=== PATIENT | female | born 1985 | race Caucasian/White ===

== ENCOUNTER 2018-02-25 07:57 | Outpatient (CLI) | payer OTHER, SELFPAY ==
--- NOTE | 2018-02-25 10:39 | HPE_ITS ---
Assessment and Plan (1) Intermittent palpitations: Current visit: Yes Status: Chronic History of intermittent rapid heartbeat that it that has been present for about 1-1/2 years. Had one episode episode of tachycardia associated with some chest pain prompting a visit to [facility] ER. Following his episode she was sent to Dr. Luciano in [place] where workup inclusive of Holter monitor and the exact event recorder was done. She was begun on metoprolol and since being begun on the metoprolol she has not had any episodes of tachycardia. She was never given a diagnosis of A. fib or V. tach. Actually she was never given any specific diagnosis that she can recall she has never been prescribed any nitroglycerin. Problem details: (2) History of snoring: Current visit: Yes Status: Chronic History of snoring but no history of waking up with a startle or so. Pauses apneic spells. (3) Pain in thumb joint with movement: Current visit: Yes Status: Acute Scheduled for surgery with Dr. Pelayo to release the first dorsal extensor compartment for de Quervain's tenosynovitis. Today she is using ibuprofen 800 mg 1-2 times a day. 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 She notes pain with any activities like opening a jar or any twisting presently she is using ibuprofen [address] mg [address] Pelayo has recommended a first dorsal extensor compartment relief since the pain is currently really disrupting her activities of daily living Review of Systems ENT Comments: Patient denies any headaches snezs cough runny nose sore throat Respiratory Denies cough, Denies pain on inspiration and Reports wheezing Allergic/Immunologic Reports wheezing PFSH Medical History Intermittent palpitations (Chronic) PCOS (polycystic ovarian syndrome) (Acute) Severe motion sickness (Acute) Depression (Chronic) GERD (gastroesophageal reflux disease) (Chronic) Hypertension (Chronic) Intermittent palpitations (Resolved) Intermittent palpitations (Inactive) Social History Smoking/Tobacco Use Status: Never alcohol intake: current alcohol intake frequency: other substance use type: does not use Surgical History History of oral surgery (Acute) History of hernia repair (Chronic) Meds Home Medications Medication Instructions Recorded Confirmed Type cetirizine [Zyrtec] 10 mg PO HS 02/25/18 02/25/18 History ibuprofen 800 mg PO TID PRN 02/25/18 02/25/18 History metoprolol succinate 50 mg PO HS 02/25/18 02/25/18 History sertraline 50 mg PO HS 02/25/18 02/25/18 History Allergies Allergy/AdvReac Type Severity Reaction Status Date / Time Influenza Virus Vaccines AdvReac Severe difficulty Verified 02/25/18 09:34 breathing, flush, itchy metformin AdvReac Severe hair loss, Verified 02/25/18 09:15 muscle spasms miconazole [From Monistat 7] AdvReac Severe Itching Verified 02/25/18 09:14 omeprazole AdvReac Severe Heart Verified 02/25/18 09:14 palpitations, tachacardia Exam Resp Effort & Inspection: normal respiratory effort, no audible wheezes and no cough Auscultation: clear to auscultation bilaterally Cardio Jugular venous pressure: no JVD Rate: regular rate Rhythm: regular rhythm Heart Sounds: normal, physiologic split S2 Bruits: no abdominal aortic bruits and carotid bruit Extrem Other: Exam of the right upper extremity shows tenderness along the course of the first dorsal extensor compartment with a markedly positive Yu's. This contrasts to a negative Yu's test on the left upper extremity.
== END 2018-02-25 08:17 ==
PROVIDERS: PCP Nurse Practitioner Family; Visit Provider Orthopaedic Surgery
DX: M65.4 Radial styloid tenosynovitis [de Quervain] (principal); Z01.818 Encounter for other preprocedural examination

== ENCOUNTER 2018-03-03 11:53 | Outpatient (CLI) | payer OTHER, SELFPAY ==
[2018-03-03 14:09] LABS: HCG Qual (Serum) Negative
[2018-03-04 11:11] LABS: Syphilis Serology (RPR) Negative (Negative)
[2018-03-04 11:27] LABS: HIV-1/2 Ag & Ab Screen Negative (NEGAT)
[2018-03-04 11:33] LABS: Hepatitis C Ab w Rflx HCV PCR Negative (NEGAT)
[2018-03-04 14:39] LABS: Chlamydia Result Negative; GC Result Negative; Specimen Description URINE
== END 2018-03-03 12:13 ==
PROVIDERS: PCP Nurse Practitioner Family; Visit Provider Nurse Practitioner Family
DX: Z20.2 Contact with and (suspected) exposure to infections with a predominantly sexual mode of transmission (principal); Z11.4 Encounter for screening for human immunodeficiency virus [HIV]; Z11.3 Encounter for screening for infections with a predominantly sexual mode of transmission; Z11.59 Encounter for screening for other viral diseases
CPT/HCPCS: 36415; 86803; 87389; 87491; 87591; 84702; 84703; 86592

== ENCOUNTER 2018-03-05 06:10 | Day surgery (SDC) | payer OTHER, SELFPAY ==
[2018-02-25 09:17] VITALS: BP 130/86; PULSE 78; RESP 17; TEMP 36.7; O2SAT 97
[2018-03-05 06:10] VITALS: BP 132/96; PULSE 80; RESP 18; TEMP 36.6; O2SAT 96
[2018-03-05] MEDS: Lactated Ringers 1,000 ML 80 ML IV (06:50)
[2018-03-05] MEDS: Bupivacaine 0.5% Pres-Free 30 ML VIAL (07:44)
--- NOTE | 2018-03-05 08:30 | W.PM.DSUDISC ---
Discharge Plan Disposition Patient Disposition: HOME Condition: Improving Discharge Details Reason For Visit: DEQUERVAIN'S RELEASE Attending Provider: Wolf Pelayo Primary Care Provider: Luz Santos Home Meds and New Rx's Prescriptions: No Action metoprolol succinate 50 mg Tablet Extended Release 24 Hr 50 mg PO HS RF: 0 ibuprofen 200 mg Tablet 800 mg PO TID PRN (Reason: migraines) RF: 0 sertraline 50 mg Tablet 50 mg PO HS RF: 0 cetirizine [Zyrtec] 10 mg Capsule 10 mg PO HS RF: 0 acetaminophen 500 mg Tablet 1,000 mg PO PRN PRNRF: 0 oxycodone-acetaminophen [Percocet] 5-325 mg Tablet 1 - 2 tab PO Q6H RF: 0 Discharge Instructions Additional Instructions: Keep your right hand elevated above heart level as much as possible for the next 48 hours. You may exercise your thumb as comfort allows. . You may loosen the wrist splint and/or the underlying alfred bandage if they feel too tight. You may use ice to the incision area of the bandage 20-30 minutes every hour to help with pain and swelling. For showering tomorrow, cover your wrist with a plastic bag and a rubber band about the upper forearm to keep the bandages dry. On 03/07/18, you may remove all of your bandages and get your wound wet in the shower with soap and water. Gently pat the stitches dry and cover them with bandaids or gauze. Resume activities as tolerated, going without the wrist splint as soon as you are comfortable. Follow-up with in 10 days for stitch removal. Take your regular medications as before. Take tylenol, advil or aleve for milder pain. Tylenol may be taken at the same time as aleve or at the same time as advil as they are metabolized differently and are not cross toxic. Take percocet 5/325mg 1-2 every 4-6 hours for more serious pain. [facility] regulations limit the amount of percocet that can be prescribed to 5 tablets. Stand Alone Forms: DSU Post op Instructions, Adrien Esparza (DSU) Print Language: Mongolian Equipment/Supplies: Brace Activity:: Elevate Remove Dressings/Wound Care:: 48 hours Shower/Bathe:: 48 hours Diet:: regular Discharge Orders Discharge Orders: Discharge Order (Routine); Ordered 03/05/18 Ordered By: Wolf Pelayo Discharge Data Discharge Date/Time-TO BE ENTERED AT DEPARTURE: 03/05/18 09:29 DS: Diagnosis Discharge Diagnosis (1) Tenosynovitis, de Quervain: Status: Acute Asessment and Plan: Surgery 03/05/18 should resolve problem
[2018-03-05 08:35] VITALS: BP 124/79; PULSE 68; RESP 16; TEMP 36.9; O2SAT 99
[2018-03-05] MEDS: Ketorolac 30 MG/ML VIAL IVP (08:41)
[2018-03-05] MEDS: ACETAMINOPHEN 1,000 MG/100 ML BTL 400 MG IVPB (08:42)
--- NOTE | 2018-03-05 08:45 | PDOC.DSDIS_ITS ---
Discharge Plan Disposition Patient Disposition: HOME Condition: Improving Discharge Details Reason For Visit: DEQUERVAIN'S RELEASE Attending Provider: Wolf Pelayo Primary Care Provider: Luz Santos Home Meds and New Rx's Prescriptions: No Action metoprolol succinate 50 mg Tablet Extended Release 24 Hr 50 mg PO HS RF: 0 ibuprofen 200 mg Tablet 800 mg PO TID PRN (Reason: migraines) RF: 0 sertraline 50 mg Tablet 50 mg PO HS RF: 0 cetirizine [Zyrtec] 10 mg Capsule 10 mg PO HS RF: 0 acetaminophen 500 mg Tablet 1,000 mg PO PRN PRNRF: 0 Discharge Instructions Additional Instructions: Keep your right hand elevated above heart level as much as possible for the next 48 hours. You may exercise your thumb as comfort allows. . You may loosen the wrist splint and/or the underlying alfred bandage if they feel too tight. You may use ice to the incision area of the bandage 20-30 minutes every hour to help with pain and swelling. For showering tomorrow, cover your wrist with a plastic bag and a rubber band about the upper forearm to keep the bandages dry. On 03/07/18, you may remove all of your bandages and get your wound wet in the shower with soap and water. Gently pat the stitches dry and cover them with bandaids or gauze. Resume activities as tolerated, going without the wrist splint as soon as you are comfortable. Follow-up with in 10 days for stitch removal. Take your regular medications as before. Take tylenol, advil or aleve for milder pain. Tylenol may be taken at the same time as aleve or at the same time as advil as they are metabolized differently and are not cross toxic. Take percocet 5/325mg 1-2 every 4-6 hours for more serious pain. [facility] [place] limit the amount of percocet that can be prescribed to 5 tablets. Equipment/Supplies: Brace Activity:: Elevate Remove Dressings/Wound Care:: 48 hours Shower/Bathe:: 48 hours Activity:: Activity as Tolerated Diet:: regular Discharge Orders Discharge Orders: Discharge Order (Routine); Ordered 03/05/18 Ordered By: Wolf Pelayo
--- NOTE | 2018-03-05 09:59 | ROE_ITS ---
REPORT OF OPERATIVE PROCEDURE DATE OF PROCEDURE March 05, 2018 PREOPERATIVE DIAGNOSIS De Quervain's tenosynovitis right wrist. POSTOPERATIVE DIAGNOSIS De Quervain's tenosynovitis right wrist. PROCEDURE Release first dorsal extensor compartment. SURGEON Wolf Pelayo M.D. HUMAN SERVICES INSTRUCTOR Nurse ANESTHESIA MAC via Propofol to tolerate use of brachial tourniquet. 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 She has been bothered by jacob gan snapping in her right thumb. Clinical exam shows a positive Yu test and tenderness raul ng the first dorsal extensor compartment. I recommended release of the first dorsal extensor compartm ent because the patient had been symptomatic for a long period of time and was significantly hampered by her wrist pain. The risks and benefits were discussed. I also explained that I would recommend M AC to tolerate a brachial tourniquet so as to prevent injury to the superficial radial nerve. She und erstood and wished to proceed. PROCEDURE The patient was greeted in the Day Surgery holding area. I reviewed the planned procedure with the jacob de paz and her mom. I signed her right upper extremity. She was taken to the Operating Suite, where a time-out was instituted verifying the procedure and the patient's allergies. She underwent induction of MAC with Propofol through an IV in her left arm. A pneumatic tourniquet was applied to the right proximal brachium. The right upper extremity was prepped with ChloraPrep. Marcaine 0.5% plain was the n used to create an anesthetic wheal over the proposed incision site. After waiting a few minutes, I then made the incision with the tourniquet inflated to 320 mmHg. The incision was carried down throug h the subcutaneous tissues using Loupe magnification. The first dorsal extensor compartment was easil y identified. The superficial radial nerve was identified and retracted dorsally. The incision was th en made in the first dorsal extensor compartment revealing synovial fluid and swelling. There was als o an extra slip of tendon of the extensor pollicis brevis. A complete release was done making sure th at there were no undiscovered compartments within the first dorsal extensor compartment. After comple tely releasing the first dorsal extensor compartment, I noted that there was no evidence to suggest r heumatoid arthritis based on the appearance to tenosynovium. At this point, the tourniquet was defla andrea. Hemostasis was under control. The subcutaneous tissues were closed with two sutures of #4-0 Vicr yl in an inverted fashion. The skin was closed with two sutures of #5-0 Ethilon in a horizontal mattr ess fashion. The wounds were dressed with Xeroform gauze, 4x4s, a 3-inch conforming gauze bandage and a 3-inch David wrap, and a commercial wrist and thumb immobilizer. The patient was taken to the [facility] Recovery Room in satisfactory condition and tolerated the procedure well.
== END 2018-03-05 09:29 | disposition home or self-care (01) ==
PROVIDERS: PCP Nurse Practitioner Family; Visit Provider Orthopaedic Surgery
PROC: (CPT 25000; principal; 2018-03-05 07:30)
DX: M65.4 Radial styloid tenosynovitis [de Quervain] (principal); K21.9 Gastro-esophageal reflux disease without esophagitis; I10 Essential (primary) hypertension
CPT/HCPCS: 25000; J0131; J1885; L3807

== ENCOUNTER 2018-05-09 10:13 | Outpatient (CLI) | payer OTHER, SELFPAY ==
[2018-05-09 10:38] LABS: Abs Immature Grans 0.02 k/cumm (0.0-0.09); Absolute Basophil Count 0.03 k/cumm (0.0-0.2); Absolute Eosinophil Count 0.12 k/cumm (0.0-0.7); Absolute Lymphocyte Count 3.01 k/cumm (1.2-3.4); Absolute Monocyte Count 0.78 k/cumm (0.11-0.7); Basophils % 0.3; Eosinophils % 1.1; HCT 41.6 % (36.0-46.0); HGB 13.5 g/dL (12.0-15.5); Immature Grans % 0.2; Lymphocytes % 27.4; Mean Corp. HGB Concentration 32.5 g/dL (32.0-36.0); Mean Corpuscular Hemoglobin 27.6 pg (27.0-33.0); Mean Corpuscular Volume 85.1 fL (80-95); Mean Platelet Volume 9.5 fL (8.0-11.0); Monocytes % 7.1; Neutrophils % 63.9; Platelet Count 422 x1000/uL (130-400); RBC 4.89 m/cumm (4.00-5.20); RBC Distribution Width 13.9 % (11.7-14.6)
[2018-05-09 10:43] LABS: Absolute Neutrophil Count 7.03 k/cumm (1.2-6.7)
[2018-05-09 11:27] LABS: Cholesterol 207 mg/dL (50-200); Glucose 88 mg/dL (70-100); HDL Cholesterol 37 mg/dL (40-60); LDL CHOLESTEROL 144 mg/dL (<100); Triglyceride 143 mg/dL (30-150)
== END 2018-05-09 10:33 ==
PROVIDERS: PCP Nurse Practitioner Family; Visit Provider Nurse Practitioner Family
DX: R42 Dizziness and giddiness (principal); H81.10 Benign paroxysmal vertigo, unspecified ear; Q21.1 Atrial septal defect; R00.2 Palpitations
CPT/HCPCS: 36415; 80061; 82947; 83721; 84443; 85025

== ENCOUNTER 2018-05-20 01:06 | Outpatient (CLI) | payer OTHER, SELFPAY ==
--- NOTE | 2018-05-20 14:10 | MERGE_ITS ---
*[facility]* *[facility]* [address] [place] [address] Date of study: 05/20/2018 Transthoracic Echocardiography M-mode, complete 2D, complete spectral Doppler, and color Doppler *STUDY CONCLUSIONS* Summary: 1. Left ventricle: The cavity size was normal. Wall thickness was increased in a pattern of mild LVH. Systolic function was normal. The estimated ejection fraction was 60-65%. Wall motion was normal; there were no regional wall motion abnormalities. 2. Left atrium: The atrium was mildly dilated. 3. Right ventricle: The cavity size was normal. Wall thickness was normal. Systolic function was normal. 4. Atrial septum: A patent foramen ovale cannot be excluded. Doppler showed no atrial level shunt. *PATIENT PRESENTATION* Height: 160cm ((63in) ) S/D Pressure: 125 / 74 Weight: 132.4kg ((291.4lb) ) BSA: 2.51m^2 Test start time: 02:15 PM. Test stop time: 03:15 PM. PERFORMING Unknown PERFORMING [facility] ORDERING Luz Santos REFERRING Luz Santos CONTROLLED AREA CHECKER RT Tong (R)(ERI), SARA *PROCEDURE DATA* Procedure information: The patient was identified by two identifiers. This study was interpreted by [facility]. Pertinent images and digital data are archived for permanent storage and are available for subsequent review. No prior study was available for comparison. Study status: Routine. Transthoracic echocardiography. M-mode, complete 2D, complete spectral Doppler, and color Doppler. A Transthoracic Echocardiogram was performed. Scanning was performed from the parasternal, apical, subcostal, and suprasternal notch acoustic windows. Images were obtained using an [id number] cardiac ultrasound machine. Image quality was fair. Study completion: The patient tolerated the procedure well. There were no complications. History: PMH: Patent foramen ovale. cardiac murmr. *CARDIAC ANATOMY* Left ventricle: The cavity size was normal. Wall thickness was increased in a pattern of mild LVH. Systolic function was normal. The estimated ejection fraction was 60-65%. Wall motion was normal; there were no regional wall motion abnormalities. Diastolic parameters were normal. Aortic valve: Not well visualized. Probably trileaflet; normal thickness leaflets. Mobility was not restricted. Doppler: Transvalvular velocity was within the normal range. There was no stenosis. There was no significant regurgitation. VTI ratio of LVOT to aortic valve: 0.55. Valve area (VTI): 1.6cm^2. Indexed valve area (VTI): 0.6cm^2/m^2. Peak velocity ratio of LVOT to aortic valve: 0.47. Valve area (Vmax): 1.4cm^2. Indexed valve area (Vmax): 0.5cm^2/m^2. Mean velocity ratio of LVOT to aortic valve: 0.52. Valve area (Vmean): 1.5cm^2. Indexed valve area (Vmean): 0.6cm^2/m^2. Mean gradient (S): 8.7mm Hg. Peak gradient (S): 17.1mm Hg. Aorta: Aortic root: The aortic root was normal in size. Ascending aorta: The ascending aorta was normal in size. Mitral valve: Structurally normal valve. Mobility was not restricted. Doppler: Transvalvular velocity was within the normal range. There was no evidence for stenosis. There was no significant regurgitation. Valve area by pressure half-time: 4.9cm^2. Indexed valve area by pressure half-time: 2cm^2/m^2. Peak gradient (D): 3.3mm Hg. Left atrium: The atrium was mildly dilated. Atrial septum: A patent foramen ovale cannot be excluded. Doppler showed no atrial level shunt. Right ventricle: The cavity size was normal. Wall thickness was normal. Systolic function was normal. Pulmonic valve: Structurally normal valve. Doppler: Transvalvular velocity was within the normal range. There was no evidence for stenosis. There was no significant regurgitation. Tricuspid valve: Structurally normal valve. Doppler: Transvalvular velocity was within the normal range. There was no evidence for stenosis. There was trivial regurgitation. Pulmonary artery: Pulmonary systolic pressure was within the normal range, in the range of 30mm Hg to 35mm Hg. Right atrium: The atrium was normal in size. Pericardium: There was no pericardial effusion. Systemic veins: Inferior vena cava: Well visualized. The vessel was patent and normal in size. The respirophasic diameter changes were in the normal range (greater than or equal to 50%). Baseline ECG: Normal sinus rhythm. Measurements Left ventricle Value Reference LV ID, ED, PLAX 5.1 cm 3.5 - 6.0 LV ID, ES, PLAX 3.2 cm 2.1 - 4.0 LV PW thickness, ED, PLAX 1.1 cm LV end-diastolic volume, 1-p A2C 100 ml LV ejection fraction, 1-p A2C 59 % LV end-diastolic volume, 1-p A4C 108 ml LV ejection fraction, 1-p A4C 64 % LV e', lateral 0.134 m/sec LV E/e', lateral 7 LV e', medial 0.108 m/sec LV E/e', medial 8 LV e', average 0.121 m/sec LV E/e', average 7 Ventricular septum Value Reference IVS thickness, ED, PLAX 1.1 cm LVOT Value Reference LVOT ID, A-P 1.9 cm LVOT area 2.9 cm^2 LVOT peak velocity, S 0.97 m/sec LVOT mean velocity, S 0.72 m/sec LVOT VTI, S 22.9 cm LVOT peak gradient, S 3.8 mm Hg LVOT mean gradient, S 2.3 mm Hg Stroke volume (SV), LVOT DP 67 ml Stroke index (SV/bsa), LVOT DP 27 ml/m^2 Aortic valve Value Reference Aortic valve peak velocity, S 2.1 m/sec Aortic valve mean velocity, S 1.37 m/sec Aortic valve VTI, S 42.0 cm Aortic mean gradient, S 8.7 mm Hg Aortic peak gradient, S 17.1 mm Hg VTI ratio, LVOT/AV 0.55 Aortic valve area, VTI 1.6 cm^2 Velocity ratio, peak, LVOT/AV 0.47 Aortic valve area, peak velocity 1.4 cm^2 Velocity ratio, mean, LVOT/AV 0.52 Aortic valve area, mean velocity 1.5 cm^2 Aortic valve area/bsa, mean velocity 0.6 cm^2/m^2 Aorta Value Reference Aortic root ID, ED 2.9 cm Ascending aorta ID, A-P, S 2.9 cm Left atrium Value Reference LA ID, A-P, ES 4.3 cm LA ID/bsa, A-P 1.7 cm/m^2 <=2.2 LA area, ES, A4C (H) 24 cm^2 8.8 - 23.4 LA area, ES, A2C 20 cm^2 LA volume/bsa, ES, 1-p A4C 38 ml/m^2 LA volume, ES, 2-p 71 ml LA volume/bsa, ES, 2-p 28 ml/m^2 LA/aortic root ratio 1.48 Mitral valve Value Reference Mitral E-wave peak velocity 0.9 m/sec Mitral A-wave peak velocity 0.55 m/sec Mitral deceleration time 154 ms 150 - 230 Mitral pressure half-time 45 ms Mitral peak gradient, D 3.3 mm Hg Mitral E/A ratio, peak 1.64 Mitral valve area, PHT, DP 4.9 cm^2 Pulmonary veins Value Reference Pulmonary vein peak velocity, S 0.64 m/sec Pulmonary vein peak velocity, D 0.54 m/sec Pulmonary vein velocity ratio, peak, 1.2 S/D Tricuspid valve Value Reference Tricuspid regurg peak velocity 2.9 m/sec Tricuspid peak RV-RA gradient 34 mm Hg Right atrium Value Reference RA area, ES, A4C 15.2 cm^2 8.3 - 19.5 Legend: (L) and (H) peggy values outside specified reference range. I have personally reviewed the images and have reviewed and edited the reported findings. Electronically signed by Mahin Chaney 05/20/2018 15:42
== END 2018-05-20 01:26 ==
PROVIDERS: PCP Nurse Practitioner Family; Visit Provider Nurse Practitioner Family
DX: R01.1 Cardiac murmur, unspecified (principal); I51.7 Cardiomegaly
CPT/HCPCS: 93306

== ENCOUNTER 2018-08-12 16:17 | Outpatient (REF) | payer OTHER, SELFPAY ==
[2018-08-12 16:35] LABS: Bilirubin Negative (Negative); Blood Moderate (Negative); Clarity Clear; Glucose Negative (Negative); Ketones Negative (Negative); Leukocyte Esterase Small (Negative); Nitrite Negative (Negative); Specific Gravity >= 1.030 (1.005-1.025); Urobilinogen 0.2 EU/dL (Up TO 0.2); pH 5.5 (5-8)
[2018-08-12 16:50] LABS: Epithelial Cells Many HPF (Negative); RBC >50 (0-2); WBC >50 HPF (0-5)
[2018-08-12 16:51] LABS: Bacteria Many HPF (Negative); C & S Indicated? No/Sq. Contamination; Casts Negative LPF (Negative); Crystals Negative HPF (Negative); Mucus Heavy (Negative); Other Cells Mod Transitional (Negative)
== END 2018-08-12 16:37 ==
LOC: LBN 16:17
PROVIDERS: PCP Nurse Practitioner Family; Visit Provider Nurse Practitioner Family
DX: R35.0 Frequency of micturition (principal)
CPT/HCPCS: 81003; 81015

== ENCOUNTER 2018-08-13 12:41 | Outpatient (CLI) | payer OTHER, SELFPAY ==
[2018-08-13 13:19] LABS: Bilirubin Negative (Negative); Blood Negative (Negative); Clarity Sl Cloudy; Glucose Negative (Negative); Ketones Negative (Negative); Leukocyte Esterase Negative (Negative); Nitrite Negative (Negative); Specific Gravity >= 1.030 (1.005-1.025); Urobilinogen 0.2 EU/dL (Up TO 0.2)
== END 2018-08-13 13:01 ==
PROVIDERS: PCP Nurse Practitioner Family; Visit Provider Nurse Practitioner Family
DX: R35.0 Frequency of micturition (principal)
CPT/HCPCS: 81003

== ENCOUNTER 2018-08-14 07:07 | Day surgery (SDC) | payer OTHER, SELFPAY ==
[2018-08-14] VITALS (7 sets, daily range): BP systolic 116–147; BP diastolic 80–95; PULSE 59–69; RESP 14–18; TEMP 36.4–36.6; O2SAT 93–98
[2018-08-14] MEDS: Lactated Ringers 1,000 ML 80 ML IV (07:45)
--- NOTE | 2018-08-14 08:07 | PDOC.DSDIS_ITS ---
Discharge Plan Disposition Patient Disposition: HOME Condition: Good Discharge Details Reason For Visit: tonsillectomy Attending Provider: Dustin Damon Primary Care Provider: Luz Santos Home Meds and New Rx's Prescriptions: Continued metoprolol succinate 50 mg Tablet Extended Release 24 Hr 75 mg PO HS RF: 0 ibuprofen 200 mg Tablet 200 mg PO TID PRN (Reason: migraines) RF: 0 sertraline 50 mg Tablet 50 mg PO HS RF: 0 Zyrtec 10 mg Capsule 10 mg PO HS RF: 0 acetaminophen 500 mg Tablet 1,000 mg PO Q6H RF: 0 Mirena 20 mcg/24 hr (5 years) Intrauterine Device 1 insert INTRAUTERINE ONCE RF: 0 fluticasone 50 mcg/actuation [place],Suspension 1 spray INTRANASAL DAILY RF: 0 olopatadine [Pataday] 0.2 % Drops 1 drp OPHTHALMIC (EYE) DAILY RF: 0 Refresh Optive 0.5-0.9 % Drops 1 drp OPHTHALMIC (EYE) TID RF: 0 Discharge Instructions Stand Alone Forms: ENT-T+A Instructions Referrals: Dustin Damon MD [ [facility] STAFF PHYSICIAN] - (1 month) Diet:: As Tolerated DS: Diagnosis Discharge Diagnosis (1) Chronic tonsillitis: Status: Chronic (2) Chronic tonsillitis: Status: Chronic
[2018-08-14] MEDS: Tranexamic Acid 1,000 MG/10 ML VIAL 1000 MG IV (08:10)
--- NOTE | 2018-08-14 08:33 | TONSIL_PTH ---
PATIENT: Don Stout LOC: [facility] U#:[id number] AGE/SX: 32/F ROOM: RE08/14/[address]: Dustin Damon MD : 1985 BED: DIS: 08/14/2018 SPEC #: [id number] RECD: 08/14/18 12:27 STATUS: MARILEE REQ #: [id number] AZRA: 08/14/18 08:[address]: Dustin Damon DEPT: Surgical Specimen RECD BY: Rocío Gomez ENTERED: 08/14/18 12:28 SP TYPE: TONSIL OTHR DR: Luz Santos Tissues: 1 - TONSIL AGE 17 & OVER 2 - TONSIL AGE 17 & OVER Procedures: GROSS AND MICRO LEVEL 3 Comments: [id number]
[2018-08-14] MEDS: fentaNYL 100 MCG/2 ML VIAL IVP ×2 (09:05→09:20)
--- NOTE | 2018-08-14 10:33 | ROE_ITS ---
REPORT OF OPERATIVE PROCEDURE DATE OF PROCEDURE August 14, 2018 PREOPERATIVE DIAGNOSIS Chronic tonsillitis. POSTOPERATIVE DIAGNOSIS Chronic tonsillitis. PROCEDURE Tonsillectomy. SURGEON Dustin Damon MD. ANESTHESIA General endotracheal. SPECIMENS Left and right tonsils sent separately. FINDINGS Significant scar tissue between the left tonsil and the left tonsillar fossa, palate intact on inspec tion to palpation. Adenoids are atrophic with no debris accumulation. Posterior choanae are widely pa tent. ESTIMATED BLOOD LOSS 20 cc. FLUIDS 550 cc. COMPLICATIONS None. INDICATIONS FOR SURGERY The patient with the above problems. This has proven medically recalcitrant and chronic. Options were explained to the family regarding further management. She elected to undergo the above procedure. Co nsent was filled out and signed prior to surgery. NARROW DESCRIPTION After obtaining an adequate level of general endotracheal anesthesia. The patient was positioned in t he supine position and position, prepped, and draped in appropriate fashion. A Frank-Rashard mouth gag was carefully introduced into the oral cavity and opened to reveal the soft a nd hard palate, which were examined, revealing no evidence of an occult cleft palate. The adenoids w ere examined using a curved mirror revealing no significant residual adenoid and no debride accumulat ion. The posterior choanae were widely patent. As such, attention was turned to the tonsils. Each ton darwin was pulled medially and posteriorly and 0.5% Marcaine with 1:100,000 epinephrine was injected int o the submucosal plane, along the superior, anterior, and posterior edges of the tonsil. Following t his, each tonsil was again distracted and a #12 blade used to incise the mucosa along the superior en d of the tonsil. A Asher elevator was then used to disarticulate the tonsil from the superior tonsilla r fossa and then a Hinson blade used to strip the tonsil free from the tonsillar fossa down to the i nferior pole, at which point and time, a tonsillar snare was used to amputate the tonsil from the ton sillar fossa. After this had been accomplished bilaterally, electrocautery suctioned-tip catheter was set on 15 mendez, coagulation was used affect hemostasis. Once it had been accomplished, the Frank-Da benito mouth gag was relaxed and reopened revealing no further bleeding. The Frank-Rashard mouth gag was t hen relaxed and removed and the patient was awakened and extubated by Anesthesia and taken to the Rec overy Room in stable condition. I was present for the entire case. CC: Dustin Damon M.D.
== END 2018-08-14 11:15 | disposition home or self-care (01) ==
PROVIDERS: PCP Nurse Practitioner Family; Visit Provider Otolaryngology
PROC: (CPT 42826; principal; 2018-08-14 08:15)
DX: J35.01 Chronic tonsillitis (principal)
CPT/HCPCS: 42826; 81025; 88304; J1100; J2250; J2405; J3010

== ENCOUNTER 2018-09-02 00:47 | Outpatient (CLI) | payer OTHER, SELFPAY ==
--- NOTE | 2018-09-02 15:12 | DI.US_ITS ---
SYMPTOMS/DIAGNOSIS: DYSURIA, HEMATURIA, R30.9, R31.0 RENAL ULTRASOUND: Routine examination was performed. The right kidney measures 11.9 cm long, the left kidney measures 13.2 cm long. No renal mass, calculus or obstruction is seen sonographically. There is blood flow to both kidneys. The prevoid urinary bladder volume is 120 cc. The bladder completely emptied upon voiding. Both ureteral jets were visualized. No intraluminal masses are seen. IMPRESSION: Normal renal ultrasound.
== END 2018-09-02 01:07 ==
PROVIDERS: PCP Nurse Practitioner Family; Visit Provider Nurse Practitioner Family
DX: R30.9 Painful micturition, unspecified (principal); R31.0 Gross hematuria
CPT/HCPCS: 76770

== ENCOUNTER 2019-01-07 09:09 | Outpatient (CLI) | payer OTHER, SELFPAY ==
[2019-01-07 10:42] LABS: ALT 24 U/L (12-78); AST 13 U/L (15-37); Albumin 3.6 g/dL (3.4-5.0); Alkaline Phosphatase 89 U/L (46-116); Anion Gap 11.3 mmol/L (3-11); BUN 14 mg/dL (7-18); Bilirubin, Total 0.7 mg/dL (0.2-1.0); CO2 22.7 mmol/L (21.0-32.0); CREATININE 0.66 mg/dL (0.55-1.02); Calcium 8.9 mg/dL (8.5-10.1); Calculated LDL 136 mg/dL; Chloride 106 mmol/L (98-107); Cholesterol 204 mg/dL (50-200); Glucose 92 mg/dL (70-100); HDL Cholesterol 39 mg/dL (40-60); Potassium 4.6 mmol/L (3.5-5.1); Sodium 140 mmol/L (136-145); Total Protein 7.1 g/dL (6.4-8.2); Triglyceride 146 mg/dL (30-150)
== END 2019-01-07 09:29 ==
PROVIDERS: PCP Nurse Practitioner Family; Visit Provider Nurse Practitioner Family
DX: N92.1 Excessive and frequent menstruation with irregular cycle (principal); G43.909 Migraine, unspecified, not intractable, without status migrainosus
CPT/HCPCS: 36415; 80053; 80061; 83721

== ENCOUNTER 2019-01-26 13:12 | Outpatient (REF) | payer OTHER, SELFPAY ==
[2019-01-26 14:02] LABS: Bilirubin Negative (Negative); Blood Large (Negative); Clarity Cloudy (Clear); Glucose Negative (Negative); Ketones Trace mg/dL (Negative); Leukocyte Esterase Small (Negative); Nitrite Negative (Negative); Specific Gravity 1.025 (1.005-1.025); Urobilinogen 0.2 EU/dL (Up TO 0.2); pH 5.5 (5-8)
[2019-01-26 14:26] LABS: Bacteria Few HPF (Negative); Crystals Many Amorphous HPF (Negative); Epithelial Cells Moderate HPF (Negative)
[2019-01-26 14:27] LABS: C & S Indicated? Yes; Casts Negative LPF (Negative); Mucus Negative (Negative)
== END 2019-01-26 13:32 ==
LOC: LBN 13:12
PROVIDERS: PCP Nurse Practitioner Family; Visit Provider Nurse Practitioner Family
DX: R31.0 Gross hematuria (principal); R39.0 Extravasation of urine
CPT/HCPCS: 81003; 81015; 87086

== ENCOUNTER 2019-10-28 15:36 | Outpatient (REF) | payer OTHER, SELFPAY ==
[2019-10-28 16:17] LABS: Bilirubin Negative (Negative); Blood Negative (Negative); Clarity Clear (Clear); Glucose Negative (Negative); Ketones Negative (Negative); Leukocyte Esterase Trace (Negative); Nitrite Negative (Negative); Specific Gravity >= 1.030 (1.005-1.025); Urobilinogen 0.2 EU/dL (Up TO 0.2); pH 5.5 (5-8)
[2019-10-28 17:47] LABS: Bacteria Moderate HPF (Negative); C & S Indicated? No/Sq. Contamination; Casts Negative LPF (Negative); Crystals Negative HPF (Negative); Epithelial Cells Moderate HPF (Negative); Mucus Negative (Negative); RBC Negative HPF (0-2); WBC 20-50 HPF (0-5)
== END 2019-10-28 15:56 ==
LOC: LBN 15:36
PROVIDERS: Family Medicine; PCP Nurse Practitioner Family; Visit Provider Nurse Practitioner Family
DX: R30.0 Dysuria (principal); R31.0 Gross hematuria
CPT/HCPCS: 81003; 81015

== ENCOUNTER 2020-01-21 10:34 | Outpatient (CLI) | payer OTHER, SELFPAY ==
--- NOTE | 2020-01-21 09:00 | NS.NUTBLAN_ITS ---
Beckie was referred to me for Medical Nutrition Therapy for Morbid Obesity. Wt: 312 lbs, 5'3 BMI 56. She reports her lowest adult weight was 175 lbs when she was 21 years old. Her weight has steadily increased in the last 11 years, she as gained >140 lbs. PMH: PCOS, IBS with diarrhea and family history of DM. She has been unable to tolerate metformin and contrave that were prescribed for weight loss. Diet record indicates mostly well balanced home cooked meals, infrequent reliance on convenience foods, no formal exercise program. 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 . In the last couple of months, her weight has increased 20 lbs with no change in diet/daily activity. She reports fatigue and joint pain daily. Assessment:Excess weight gain related to PCOS and inabilty to treat with perscribed metformin due to intolerance Intervention: Educated Beckie on how to follow 1300 kcal, low carb, high protein diet with 4 hours of exercise weekly to help with weight loss. Had a dami discussion regarding weight loss from diet and exercise typically will be no more than 50 lbs. We briefly discussed weight loss surgery as an option if unable to sustain significant weight loss. Meal plans and literature provided. Bekcie instructed to log daily food record on [employer]. Goal: 10 lbs weight loss per month Plan: 1300 calorie diet, exercise 4 hours per week, follow up weekly via email, monthly in office.
== END 2020-01-21 10:54 ==
PROVIDERS: PCP Nurse Practitioner Family; Visit Provider Dietitian, Registered
DX: E66.01 Morbid (severe) obesity due to excess calories (principal); Z71.3 Dietary counseling and surveillance
CPT/HCPCS: 97802

== ENCOUNTER 2020-04-25 16:47 | Outpatient (CLI) | payer OTHER, SELFPAY ==
--- NOTE | 2020-04-25 | DI.RAD_ITS ---
EXAM: XR LUMBAR SPINE AP, LAT CLINICAL HISTORY: LOW BACK PAIN, M54.5. TECHNIQUE: 2D digital imaging was performed. COMPARISON: No exams were available for comparison FINDINGS: There is normal alignment. There are 5 lumbar type vertebral bodies. The disc heights are well main tained. Small endplate osteophytes are seen in the lumbar spine. No acute fracture or dislocation i s present. The bones are normally mineralized. IMPRESSION: Mild degenerative changes in the lumbar spine. DATA REPOSITORY: RADIATION DOSE DELIVERED:
== END 2020-04-25 17:07 ==
PROVIDERS: PCP Nurse Practitioner Family; Visit Provider Physician Assistant
DX: M47.816 Spondylosis without myelopathy or radiculopathy, lumbar region (principal)
CPT/HCPCS: 72100

== ENCOUNTER 2020-05-05 01:23 | Outpatient (CLI) | payer OTHER, SELFPAY ==
--- NOTE | 2020-05-05 | DI.MRI_ITS ---
EXAM: MR BRAIN WO/W CLINICAL HISTORY: WORSENING MIGRAINES,G43.909 TECHNIQUE: Multiplanar multisequence MRI of the brain was performed. CONTRAST MATERIAL: IV Contrast: 20 ML of Dotarem contrast administered. COMPARISON: No exams were available for comparison FINDINGS: VENTRICLES AND EXTRA AXIAL SPACES: Normal in size and morphology for the patient's age. HEMORRHAGE: None. CEREBRAL PARENCHYMA: No focus of restricted diffusion to suggest acute infarct. No space-occupying le sharon identified. MIDLINE SHIFT: None. BRAINSTEM/CEREBELLUM: Normal. CALVARIUM: Normal. ENHANCEMENT: No suspicious enhancement identified. VISUALIZED PARANASAL SINUSES/MASTOIDS: Clear. [place]: Normal flow void. PITUITARY GLAND: Unremarkable. OTHER FINDINGS: IMPRESSION: Unremarkable MRI of the brain. DATA REPOSITORY:
[2020-05-05] MEDS: Normal Saline Flush 10 ML SYR IVP (08:34)
[2020-05-05] MEDS: Gadoterate meglumine 20 ML VIAL IVP (08:35)
== END 2020-05-05 01:43 ==
PROVIDERS: PCP Nurse Practitioner Family; Visit Provider Nurse Practitioner Family
DX: G43.909 Migraine, unspecified, not intractable, without status migrainosus (principal)
CPT/HCPCS: 70553

== ENCOUNTER 2020-05-26 11:24 | Outpatient (CLI) | payer OTHER, SELFPAY ==
--- NOTE | 2020-05-26 10:45 | DI.RAD_ITS ---
EXAM: XR ANKLE RT COMPLETE CLINICAL HISTORY: rt ankle pain. TECHNIQUE: 2D digital imaging was performed. COMPARISON: No exams were available for comparison FINDINGS: There is no evidence of acute fracture no widening of the mortise. No osteochondral defects of the t alar dome. However, there is anterior osseous lipping of the anterior aspect of the tibial plafond. Also bony excrescences off of the lateral malleolus. On the lateral view the appearance suggests pr obable talocalcaneal tarsal coalition. There is mild foreshortening of the talar neck and dorsal angela jacqueline. The talonavicular joint appears wider than normal. There is an element of pes planus. IMPRESSION: No fractures. Findings as above suggest the presence of probable tarsal coalition. DATA REPOSITORY: RADIATION DOSE DELIVERED:
== END 2020-05-26 11:44 ==
PROVIDERS: PCP Nurse Practitioner Family; Referring Provider Nurse Practitioner Family; Visit Provider Physician Assistant Surgical
DX: M25.571 Pain in right ankle and joints of right foot (principal)
CPT/HCPCS: 73610

== ENCOUNTER 2020-06-03 01:43 | Outpatient (CLI) | payer OTHER, SELFPAY ==
--- NOTE | 2020-06-03 06:30 | DI.CT_ITS ---
EXAM: CT LOWER EXTREMITY RT WO CLINICAL HISTORY: CHRONIC ANKLE PAIN,M25.579,G89.29. TECHNIQUE: Imaging Protocol: Axial computed tomography images with coronal and sagittal reformatted images were created and reviewed. CONTRAST MATERIAL: Noncontrast COMPARISON: CR XR ANKLE RT COMPLETE from 05/26/2020 FINDINGS: There are heel spurs. There is spurring from both malleoli. No talar dome defect is seen. The ankl e mortise is not widened. There is partial tarsal coalition at the sustentaculum of the calcaneus wi th the adjacent aspect of the talus. There is increased sclerosis in this location. There is also s clerosis at the anterior process. There is spurring at the talonavicular joint is prominent dorsally . There is also spurring at the navicular cuneiform talar and calcaneal cuboid joints. No bony eros ions are seen. There is some edema in the subcutaneous tissues but no drainable collection. 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 Degenerative changes. RADIATION DOSE DELIVERED: 242.69mGy.cm Total DLP DATA REPOSITORY: All CT scans at this facility are submitted to the National Radiology Data Registry (NRDR) Dose Index Registry (DIR) with the [employer] (ACR). RADIATION OPTIMIZATION: All CT scans at this facility use at least one of these dose optimization te chniques: automated exposure control; mA and/or kV adjustment per patient size (includes targeted exa ms where dose is matched to clinical indication); or iterative reconstruction.
== END 2020-06-03 02:03 ==
PROVIDERS: PCP Nurse Practitioner Family; Visit Provider Student in an Organized Health Care Education/Training Program
DX: Q66.89 Other specified congenital deformities of feet (principal); G89.29 Other chronic pain; M25.571 Pain in right ankle and joints of right foot
CPT/HCPCS: 73700

== ENCOUNTER 2020-07-01 04:40 | Outpatient (CLI) | payer OTHER, SELFPAY ==
--- NOTE | 2020-07-01 08:15 | DI.MRI_ITS ---
EXAM: MR LUMBAR SPINE WO CLINICAL HISTORY: Worsened pain, now possibly radicular,. TECHNIQUE: Multiplanar multisequence MRI of the Lumbar spine was performed. COMPARISON: CR XR LUMBAR SPINE AP, LAT from 04/25/2020 FINDINGS: Bones: The last intervertebral disc space is designated the L5/S1 level for the numbering purpose of this examination. The vertebral body heights are well maintained. Alignment is satisfactory. The si gnal characteristics are unremarkable. Incidental note is made of mild degenerative endplate signal c hanges and small osteophytes at T11-T12. Cord: The conus tip ends at the T12 level. It is of normal size and signal intensity. T12-L1: No disc herniations or bulges are present. No central spinal canal or neural foraminal stenos is. L1-2: No disc herniations or bulges are present. No central spinal canal or neural foraminal stenosis . L2-3: No disc herniations or bulges are present. No central spinal canal or neural foraminal stenosis . L3-4: No disc herniations or bulges are present. No central spinal canal or neural foraminal stenosis . L4-5: No disc herniations or bulges are present. No central spinal canal or neural foraminal stenosis . L5-S1: No disc herniations or bulges are present. No central spinal canal or neural foraminal stenosi s. Soft tissues: The visualized SI joints and sacrum are well maintained. The paraspinal soft tissues ar e unremarkable. IMPRESSION: No evidence of significant spinal stenosis or neuroforaminal narrowing. DATA REPOSITORY:
== END 2020-07-01 05:00 ==
PROVIDERS: PCP Nurse Practitioner Family; Visit Provider Nurse Practitioner Family
DX: M54.5 Low back pain (principal)
CPT/HCPCS: 72148

== ENCOUNTER 2020-09-01 01:37 | Outpatient (CLI) | payer OTHER, SELFPAY ==
--- NOTE | 2020-09-01 08:45 | DI.MRI_ITS ---
EXAM: MR THORACIC SPINE WO CLINICAL HISTORY: persistent right thoracic pain,LOW BACK PAIN,M54.6,M54.5. TECHNIQUE: Multiplanar multisequence MRI of the Thoracic spine was performed. CONTRAST MATERIAL: IV Contrast: mL of Dotarem contrast administered. COMPARISON: No exams were available for comparison FINDINGS: Bones: The vertebral body heights are well maintained. Alignment is satisfactory. Multilevel endplate degenerative signal changes are seen in the lower thoracic spine. There are anterior osteophytes se en in the lower thoracic spine. Cord: The thoracic cord is normal size and signal intensity. There is mild dilatation of the central canal in the spinal cord suggesting hydromyelia.. Discs: There is a mild diffuse disc bulge at T6-T7. No significant central spinal canal stenosis is seen. No neural foraminal stenosis. IMPRESSION: 1. Multilevel degenerative changes in the thoracic spine. Mild diffuse disc bulge at T6-T7. No sign ificant central spinal canal or neural foraminal stenosis. 2. 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 DATA REPOSITORY:
== END 2020-09-01 01:57 ==
PROVIDERS: PCP Nurse Practitioner Family; Visit Provider Nurse Practitioner Family
DX: M47.816 Spondylosis without myelopathy or radiculopathy, lumbar region (principal)
CPT/HCPCS: 72146

== ENCOUNTER 2020-10-13 11:34 | Outpatient (CLI) | payer OTHER, SELFPAY ==
--- NOTE | 2020-10-13 11:30 | RT.EKG_ITS ---
APPROVED REPORT Exam: Resting ECG Patient Location: O HR:69 bpm ECG Measurements Heart Rate 69 AXIS MN 128 P 18 QRSd 102 QRS 2 QT 399 T 32 QTc 428 Conclusion Sinus rhythm...normal P axis, V-rate 50- 99 Normal Electrocardiogram
== END 2020-10-13 11:35 | disposition home or self-care (01) ==
LOC: DI.CARD 11:35
PROVIDERS: PCP Nurse Practitioner Family; Visit Provider Internal Medicine Cardiovascular Disease
DX: R00.2 Palpitations (principal)
CPT/HCPCS: 93010

== ENCOUNTER 2020-11-22 01:12 | Outpatient (CLI) | payer OTHER, SELFPAY ==
--- NOTE | 2020-11-22 06:45 | DI.US_ITS ---
APPROVED REPORT EXAM: Comprehensive 2D, Doppler, and color-flow Echocardiogram Patient Location: Out-Patient Wood Turner: Angy Sun RDCS (AE) Indications: Symptomatic palpitations, Patent foramen ovale Other Information Study Quality: Adequate. Technically limited study due to body habitus. Conclusion Left Ventricle : The left ventricle is normal size. The left ventricular systolic function is normal. The left ventricular ejection fraction is within the normal range. There is normal left ventricular wall thickness. There is normal LV segmental wall motion. The left ventricular diastolic function is normal. LVEF is 60-65%. Right Ventricle : The right ventricle is normal size. The right ventricular systolic function is norm al. The RVSP is 23.9 mmHg. Atria : The left atrium size is normal. The right atrium size is normal. The interatrial septum is in tact with no evidence for an atrial septal defect. Bubble study was not performed. Great Vessels : The aortic root is normal in size. The ascending aorta is normal in size. Aortic arch is normal in caliber. IVC is normal in size and collapses >50% with inspiration. Study from 05/20/2018, there is no significant change. Wall motion Left Ventricle The left ventricle is normal size. The left ventricular systolic function is normal. The left ventric ular ejection fraction is within the normal range. There is normal left ventricular wall thickness. T here is normal LV segmental wall motion. The left ventricular diastolic function is normal. There is no ventricular septal defect visualized. LVEF is 60-65%. Right Ventricle The right ventricle is normal size. The right ventricular systolic function is normal. The RVSP is 23 .9 mmHg. Atria The left atrium size is normal. The right atrium size is normal. The interatrial septum is intact wit h no evidence for an atrial septal defect. Aortic Valve The aortic valve is normal in structure. Aortic valve is trileaflet. There is no aortic valvular sten osis. No aortic regurgitation is present. Mitral Valve The mitral valve is normal in structure. No evidence of mitral valve stenosis. Trace mitral regurgita tion. Tricuspid Valve The tricuspid valve is normal in structure. There is no tricuspid valve stenosis. Trace tricuspid reg urgitation. Pulmonic Valve Pulmonic valve is not well visualized. There is no pulmonic valvular stenosis. Trace pulmonic regurgi tation. Great Vessels The aortic root is normal in size. The ascending aorta is normal in size. Aortic arch is normal in ca liber. IVC is normal in size and collapses >50% with inspiration. Pericardium There is no pericardial effusion. 2D Dimensions IVSD d PLAX 0.97 cm F: 0.6-1.0 LV Vol A2C d MOD 93.9 mL LVPW d PLAX 0.96 cm F: 0.6 - 1.0 LV Vol A4C d MOD 143.8 mL LVID d PLAX 4.67 cm F: 3.8 - 5.2 LA vol/ BSA A2C s A-L 22.8 mL/m2 LVDs 2.95 cm F: 2.2 - 3.5 LA vol/ BSA A4C s A-L 33.1 mL/m2 Ao Root d 2.68 cm F: 2.7 - 3.3 LA Vol/ BSA Biplane s A-L 29.2 mL/m2 RA Area A4C 11.94 cm2 LA Area A4C s MOD 22.74 cm2 RA Vol/ BSA A4C s A-L 11.2 mL/m2 LA Area A2C s MOD 17.77 cm2 Ao Asc Diam d 3.05 cm F: 2.3 - 3.1 LV EF A4C MOD 60.0 % LV EF Teichholz 66.3 % LV EF A2C MOD 64.3 % LVEF (Caputo's) 61.10 % F: 54 - 74 LV EF Biplane MOD 61.1 % LV Volume 83.28 mL F: 46 - 106 SV 71.01 mL LV Volume Index 36.05 mL/m2 F: 29 - 61 SV Index 30.75 mL/m2 LV Vol Biplane MOD 116.2 mL FS 36.50 % M-Mode TAPSE 2.25 cm (M/F) >1.7 LV Diastology MV E' medial 0.096 (>0.07 m/s) E/A Ratio 1.8 LV E/e MED 8.20 (<14) MV E Vmax 0.79 (0.4-1.3 m/s) MV E' lateral 0.122 (>0.1 m/s) MV A Vmax 0.45 (0.4-1.3 m/s) LV E/e LAT 6.45 (<14) MV E/A Ratio 1.64 MV E/E' medial 8.25 MV E/E' lateral 6.47 Aortic Valve LVOT Area 3.63 cm2 AoV Area Vmax 2.29 cm2 LVOT Vmax 0.90 m/s AoV Area/ BSA (Vmax) 0.99 cm2/m2 LVOT Mean Regis. 0.56 m/s JARED Mean Regis. 1.94 cm2 LVOT Peak Grad 3.2 mmHg JARED Mean Regis. Index 0.84 cm2/m2 LVOT Mean Grad 1.5 mmHg LVOT VTI 0.223 m LVOT Diam s 2.10 cm AoV Vmax 1.43 m/s Velocity Ratio 0.62 AoV Mean Regis. 1.05 m/s AoV Peak Grad 8.2 mmHg LVOT SV 80.89 mL AoV Mean Grad 4.8 mmHg AoV VTI 0.331 m AoV Area VTI 2.44 cm2 AoV Area/ BSA (VTI) 1.06 cm/m2 Mitral Valve MV DT 188 (160-240 msec) MV PHT 54 msec MV Area PHT 4.04 cm2 MV VTI 0.247 m MV VTI Annulus 0.252 m MV Area VTI 3.33 (4.0-6.0 cm2) Pulmonary Valve PV Vmax 0.81 (0.5-1.5 m/s) RVOT Peak Gr. 1.52 mmHg PV Peak Grad 2.6 mmHg RVOT Mean Gr. 0.85 mmHg PV Mean Grad 1.6 mmHg RVOT VTI 0.152 m PV VTI 0.185 m RVOT Vmax 0.62 m/s Tricuspid Valve TR Peak Grad 20.9 mmHg TR Vmax 2.29 m/s RA Pressure 3.00 mmHg RVSP (TR) 23.9 mmHg
== END 2020-11-22 01:32 ==
PROVIDERS: PCP Nurse Practitioner Family; Visit Provider Internal Medicine Cardiovascular Disease
DX: R00.2 Palpitations (principal); Q21.1 Atrial septal defect; R93.9 Diagnostic imaging inconclusive due to excess body fat of patient
CPT/HCPCS: 93306

== ENCOUNTER 2020-11-25 02:34 | Outpatient (CLI) | payer OTHER, SELFPAY ==
[2020-11-25 11:44] LABS: Source Nasal/Nares
[2020-11-25 20:57] LABS: COVID-19 PCR Negative (Negative)
== END 2020-11-25 02:35 | disposition home or self-care (01) ==
LOC: LBO 02:34
PROVIDERS: PCP Nurse Practitioner Family; Visit Provider Nurse Practitioner
DX: Z20.822 Contact with and (suspected) exposure to COVID-19 (principal); Z01.818 Encounter for other preprocedural examination
CPT/HCPCS: 87635

== ENCOUNTER 2020-12-08 08:42 | Outpatient (CLI) | payer OTHER, SELFPAY ==
[2020-12-08 08:52] VITALS: BP 144/86; PULSE 85; RESP 20; TEMP 36.6; O2SAT 97
--- NOTE | 2020-12-08 10:10 | DI.RAD_ITS ---
Exam(s) XR PAIN CLINIC THORACIC SP 2V EXAM: XR PAIN CLINIC THORACIC SP 2V CLINICAL HISTORY: Dx: Lumbar Radiculopathy TECHNIQUE: 2D and realtime digital imaging was performed. Radiologist not present. CONTRAST MATERIAL: None. COMPARISON: No exams were available for comparison FINDINGS: Fluoroscopy was provided for pain management therapy performed by [place]. Submitted image(s) reveal needle placement for thoracic epidural steroid injection.. Please refer to procedure report or details. Cumulative dose: Laminer=19.47 mGy IMPRESSION: RADIATION DOSE DELIVERED:
[2020-12-08] MEDS: Dexamethasone Sod. Phos./Pres-Free 10 MG/ML VIAL IJ (10:22)
[2020-12-08] MEDS: Omnipaque 240 MG/ML 50 ML BTL IJ (10:22)
--- NOTE | 2020-12-08 10:25 | PDOC.PAIN_ITS ---
Pain Clinic Procedure Note Procedure Note Procedure Note: Date of service: December 08, 2020 Thoracic Epidural Steroid Injection Beckie Stout has been referred to the [facility] for interlaminar thoracic epidural steroid injection. COMMENTS:Pre-procedure VAS pain was 7/10 Dx: Thoracic radiculopathy Patient was interviewed and the medical record reviewed. There were no medical, pharmacologic, radiographic or other structural contraindications to attempting fluoroscopically guided epidural steroid injection. Risks and expected side effects as well as potential benefit of the procedure were reviewed and voiced concerns addressed. The printed consent form was signed and witnessed. Standard time-out procedure was performed. The patient was placed in the prone position on the fluoroscopy table and automated blood pressure cuff and pulse oximeter applied. The skin entry point for entering the epidural space by a midline T6-T7 interlaminar approach was identified under fluoroscopy and marked. Following thorough Chlorhexadine prepa ration of the skin and draping and 1% lidocaine infiltration of the skin entry point and subcutaneous tissues, a 5 17 gauge Tuohy needle was placed under fluoroscopic guidance and with loss of resistance technique into the epidural space. Upon needle placement and loss of resistance there were no paresthesiae or return of blood or CSF through the needle. 1ml of Omnipaque 240 were injected with clear epidural spread in the A/P, oblique views. 15mg of preservative-free Dexamethasone with 1ml sterile normal saline were injected through the needle with no unusual discomfort expressed. The needle was removed without difficulty. A bandage was placed. Vital signs were stable throughout the procedure and were as recorded in the docflowsheet by the nursing staff. If given, dosages of intravenous drugs for anxiolysis and analgesia were documented in MAR. Follow up plans and appointments were discussed. Post procedure instruction was given as documented in nursing documentation and having met discharge criteria and was discharged from the [facility]. COMMENTS: She did well with the procedure. Post-procedure pain VAS was 3/10. Zhang Osborne DO, MPH Pain Management CC: Luz Santos
[2020-12-08 10:32] VITALS: BP 161/83; PULSE 70; RESP 18; O2SAT 98
== END 2020-12-08 08:43 | disposition home or self-care (01) ==
LOC: PC 08:42
PROVIDERS: PCP Nurse Practitioner Family; Visit Provider Preventive Medicine Occupational Medicine
DX: M54.14 Radiculopathy, thoracic region (principal)
CPT/HCPCS: 62321; 72070; Q9967

== ENCOUNTER 2021-02-14 09:22 | Outpatient (CLI) | payer OTHER, SELFPAY ==
[2021-02-14 09:31] VITALS: BP 138/64; PULSE 76; RESP 18; TEMP 36.7; O2SAT 98
--- NOTE | 2021-02-14 10:11 | DI.RAD_ITS ---
Exam(s) XR PAIN CLINIC THORACIC SP 2V EXAM: XR PAIN CLINIC THORACIC SP 2V CLINICAL HISTORY: Dx: Thoracic Radiculopathy. TECHNIQUE: Fluoroscopy was provided for the referring physician for guidance with performing injecti on procedure. COMPARISON: No exams were available for comparison FINDINGS: Please see procedure note for details. Fluoro time 26.8 seconds RADIATION DOSE DELIVERED: sabrina Raman=9.84 mGy
--- NOTE | 2021-02-14 10:12 | PDOC.PAIN ---
Pain Clinic Procedure Note Procedure Note Procedure Note: Date of service: February 14, 2021 Thoracic Epidural Steroid Injection Beckie Stout has been referred to the [facility] for interlaminar thoracic epidural steroid injection. COMMENTS:Pre-procedure VAS pain was 5/10; post-procedure VAS pain level 2/10 Dx: Thoracic radiculopathy Patient was interviewed and the medical record reviewed. There were no medical, pharmacologic, radiographic or other structural contraindications to attempting fluoroscopically guided epidural steroid injection. Risks and expected side effects as well as potential benefit of the procedure were reviewed and voiced concerns addressed. The printed consent form was signed and witnessed. Standard time-out procedure was performed. The patient was placed in the prone position on the fluoroscopy table and automated blood pressure cuff and pulse oximeter applied. The skin entry point for entering the epidural space by a midline T6-T7 interlaminar approach was identified under fluoroscopy and marked. Following thorough Chlorhexadine preparation of the skin and draping and 1% lidocaine infiltration of the skin entry point and subcutaneous tissues, a 3.5 18 gauge Tuohy needle was placed under fluoroscopic guidance and with loss of resistance technique into the epidural space. Upon needle placement and loss of resistance there were no paresthesiae or return of blood or CSF through the needle. 1ml of Omnipaque 240 were injected with clear epidural spread in the A/P, oblique views. 15mg of preservative-free Dexamethasone with 0.5ml sterile normal saline were injected through the needle with no unusual discomfort expressed. The needle was removed without difficulty. A bandage was placed. Vital signs were stable throughout the procedure and were as recorded in the docflowsheet by the nursing staff. If given, dosages of intravenous drugs for anxiolysis and analgesia were documented in MAR. Follow up plans and appointments were discussed. Post procedure instruction was given as documented in nursing documentation and having met discharge criteria and was discharged from the [facility]. COMMENTS: She did well with the procedure. Post-procedure pain VAS was 2/10. Juana Morrison MD Pain Management CC: Luz Santos
[2021-02-14 10:14] VITALS: BP 145/92; PULSE 71; RESP 17; O2SAT 98
[2021-02-14] MEDS: Dexamethasone Sod. Phos./Pres-Free 10 MG/ML VIAL IJ (10:25)
[2021-02-14] MEDS: Omnipaque 240 MG/ML 50 ML BTL IJ (10:25)
== END 2021-02-14 09:23 | disposition home or self-care (01) ==
LOC: PC 09:22
PROVIDERS: PCP Nurse Practitioner Family; Visit Provider Internal Medicine
DX: M54.14 Radiculopathy, thoracic region (principal)
CPT/HCPCS: 62321; 72070; Q9967

== ENCOUNTER 2021-02-21 01:25 | Outpatient (CLI) | payer OTHER, SELFPAY ==
--- NOTE | 2021-02-21 07:45 | DI.MRI_ITS ---
Exam(s) MR CERVICAL SPINE WO EXAM: MR CERVICAL SPINE WO CLINICAL HISTORY: decreased dexterity both hands,NUMBNESS,TINGLING,R20.2 TECHNIQUE: Multiplanar multisequence MRI of the cervical spine was performed without intravenous con trast. COMPARISON: No exams were available for comparison FINDINGS: The examination is limited due to patient motion artifact. BONES: Vertebral body heights are maintained. Intervertebral disc spaces are normal. Alignment is nor mal. Bone marrow signal intensity is within normal limits. CERVICAL CORD: Craniovertebral junction is unremarkable. The cervical cord is normal size and signal intensity. There is again seen mild dilatation of the central spinal canal in the thoracic spinal cor d. This is unchanged compared to the MRI from 09/01/2020. SOFT TISSUES: Unremarkable. C2-3: No disc herniation or bulge is identified. No significant central spinal canal or neural forami nal stenosis. C3-4: No disc herniation or bulge is identified. No significant central spinal canal or neural forami nal stenosis C4-5: No disc herniation or bulge is identified. No significant central spinal canal or neural forami nal stenosis C5-6: There is a mild diffuse disc bulge. No significant central spinal canal or neural foraminal st enosis C6-7: There is a mild diffuse disc bulge. No significant central spinal canal or neural foraminal st enosis C7-T1: No disc herniation or bulge is identified. No significant central spinal canal or neural waqar inal stenosis IMPRESSION: No significant central spinal canal or neural foraminal stenosis in the cervical spine. DATA REPOSITORY:
== END 2021-02-21 01:45 ==
PROVIDERS: PCP Nurse Practitioner Family; Visit Provider Nurse Practitioner Family
DX: M54.6 Pain in thoracic spine (principal); R20.0 Anesthesia of skin; R20.2 Paresthesia of skin
CPT/HCPCS: 72141

== ENCOUNTER 2021-04-13 17:18 | Emergency (ER) | payer OTHER, SELFPAY ==
[2021-04-13 17:28] VITALS: BP 151/116; PULSE 70; RESP 16; TEMP 36.3; O2SAT 99
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
[2021-04-13] MEDS: Ketorolac 60 MG/2 ML VIAL IM (20:05)
[2021-04-13] MEDS: Orphenadrine 60 MG/2 ML VIAL IM (20:07)
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
== END 2021-04-13 20:45 | disposition home or self-care (01) ==
PROVIDERS: Emergency Provider Physician Assistant; PCP Nurse Practitioner Family
DX: M54.2 Cervicalgia (principal); R51.9 Headache, unspecified; M25.512 Pain in left shoulder; V43.52XA Car driver injured in collision with other type car in traffic accident, initial encounter
CPT/HCPCS: 96372; 99284; J2360; 70450; 71046; 72125; 73030; J1885

== ENCOUNTER 2021-05-26 04:04 | Outpatient (CLI) | payer OTHER, SELFPAY ==
[2021-05-26 07:23] LABS: ALT 33 U/L (14-59); AST 17 U/L (15-37); Albumin 3.8 g/dL (3.4-5.0); Alkaline Phosphatase 86 U/L (46-116); BUN 14 mg/dL (7-18); Bilirubin, Total 0.4 mg/dL (0.2-1.0); CREATININE 0.7 mg/dL (0.55-1.02); Chloride 104 mmol/L (98-107); Glucose 98 mg/dL (74-106); Potassium 4.3 mmol/L (3.5-5.1); Sodium 140 mmol/L (136-145); Total Protein 7.1 g/dL (6.4-8.2)
== END 2021-05-26 04:05 | disposition home or self-care (01) ==
LOC: LBO 04:04
PROVIDERS: PCP Nurse Practitioner Family; Visit Provider Nurse Practitioner Family
DX: E66.9 Obesity, unspecified (principal); E28.2 Polycystic ovarian syndrome; G43.909 Migraine, unspecified, not intractable, without status migrainosus
CPT/HCPCS: 80053

== ENCOUNTER 2021-07-24 07:53 | Outpatient (REF) | payer OTHER, SELFPAY ==
[2021-07-24 09:27] LABS: Source Nasal/Nares
[2021-07-24 12:08] LABS: COVID-19 PCR Negative (Negative)
== END 2021-07-24 07:54 | disposition home or self-care (01) ==
LOC: LBO 07:53
PROVIDERS: PCP Nurse Practitioner Family; Visit Provider Family Medicine
DX: Z20.822 Contact with and (suspected) exposure to COVID-19 (principal)
CPT/HCPCS: 87635

== ENCOUNTER 2021-08-31 20:35 | Outpatient (REF) | payer OTHER, SELFPAY ==
[2021-08-31 16:07] LABS: Bilirubin Negative (Negative); Blood Negative (Negative); Clarity Clear (Clear); Glucose Negative (Negative); Ketones Negative (Negative); Leukocyte Esterase Trace (Negative); Nitrite Negative (Negative); Specific Gravity >= 1.030 (1.005-1.025); Urobilinogen 0.2 EU/dL (Up TO 0.2); pH 5.5 (5-8)
[2021-08-31 16:13] LABS: Bacteria Many HPF (Negative); Crystals Few Calcium Oxalate HPF (Negative); Epithelial Cells Few HPF (Negative); RBC 0-2 HPF (0-2); WBC 20-50 HPF (0-5)
[2021-08-31 16:14] LABS: C & S Indicated? Yes; Casts Negative LPF (Negative); Mucus Moderate (Negative)
== END 2021-08-31 20:36 | disposition home or self-care (01) ==
LOC: LBN 20:35
PROVIDERS: PCP Nurse Practitioner Family; Visit Provider Family Medicine
DX: M54.59 Other low back pain (principal)
CPT/HCPCS: 87077; 81003; 81015; 87086; 87186

== ENCOUNTER 2021-11-08 14:29 | Outpatient (CLI) | payer OTHER, SELFPAY ==
--- NOTE | 2021-11-08 06:00 | DI.RAD_ITS ---
Exam(s) XR PAIN CLINIC THORACIC SP 2V EXAM: XR PAIN CLINIC THORACIC SP 2V CLINICAL HISTORY: DX: Thoracic radiculopathy TECHNIQUE: 2D and realtime digital imaging was performed. Radiologist not present. CONTRAST MATERIAL: None. COMPARISON: No exams were available for comparison FINDINGS: Fluoroscopy was provided for pain management therapy. Please refer to procedure report or details. Cumulative dose: Ka,r=36.8 mGy IMPRESSION: RADIATION DOSE DELIVERED:
[2021-11-08 14:42] VITALS: BP 129/78; PULSE 77; RESP 18; TEMP 36.6; O2SAT 99
--- NOTE | 2021-11-08 15:47 | PDOC.PAIN ---
Pain Clinic Procedure Note Procedure Note Procedure Note: Thoracic Epidural Steroid Injection Beckie Stout has been referred to the [facility] for thoracic epidural steroid injection. COMMENTS: I saw her in the clinic before this procedure. She has had this procedure twice in the past with great results. Dx: thoracic radiculopathy Preprocedure pain VAS 7/10. Ms. Stout was interviewed and the medical record reviewed. There were no medical, pharmacologic, radiographic or other structural contraindications to attempting fluoroscopically guided epidural steroid injection. Risks and expected side effects as well as potential benefit of the procedure were reviewed with Ms. Stout , and Ms. Stout voiced concerns addressed. The printed consent form was signed and witnessed. Standard time-out procedure was performed. The patient was placed in the prone position on the fluoroscopy table and automated blood pressure cuff and pulse oximeter applied. The skin entry point for entering the epidural space by a midline T6-T7 interlaminar approach was identified under fluoroscopy and marked. Following thorough Chlorhexadine preparation of the skin and draping and 1% lidocaine infiltration of the skin entry point and subcutaneous tissues, an 18 gauge Tuohy needle was placed under fluoroscopic guidance and with loss of resistance technique into the T6-T7 epidural space. Upon needle placement and loss of resistance there were no paresthesiae or return of blood or CSF through the needle. 1 cc of Omnipaque 240 was injected with clear epidural spread in the A/P, lateral and oblique views. 15 mg of preservative free Dexomethasone was injected with no unusual discomfort expressed by Girish. This was flushed with 1 cc of normal saline and the needle was removed. Girish 's vital signs were stable throughout the procedure and were as recorded in the docflowsheet by the nursing staff. Follow up plans and appointments were discussed with the Ms Stout. Post procedure instruction was given as documented in nursing documentation and having met discharge criteria, Ms. Stout was discharged from the [facility]. COMMENTS: Post-procedure pain VAS 4/10. Zhang Osborne DO, MPH [facility]-Pain Management [facility] for [facility] Management CC: Beverly Conroy APRN
[2021-11-08] MEDS: Omnipaque 240 MG/ML 50 ML BTL IJ (15:59)
[2021-11-08] MEDS: Dexamethasone Sod. Phos./Pres-Free 10 MG/ML VIAL IJ (15:59)
[2021-11-08 16:00] VITALS: BP 122/82; PULSE 72; RESP 16; O2SAT 99
== END 2021-11-08 14:30 | disposition home or self-care (01) ==
LOC: PC 14:30
PROVIDERS: PCP Nurse Practitioner Adult Health; Visit Provider Preventive Medicine Occupational Medicine
DX: M54.14 Radiculopathy, thoracic region (principal)
CPT/HCPCS: 62321; 72070; Q9967

== ENCOUNTER 2021-12-23 11:22 | Emergency (ER) | payer OTHER, SELFPAY ==
[2021-12-23 11:40] VITALS: BP 142/78; PULSE 89; RESP 18; TEMP 36.4; O2SAT 99
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
== END 2021-12-23 12:35 | disposition home or self-care (01) ==
PROVIDERS: Emergency Provider Nurse Practitioner Family; PCP Nurse Practitioner Adult Health
DX: M62.830 Muscle spasm of back (principal); G89.29 Other chronic pain; I10 Essential (primary) hypertension; M54.6 Pain in thoracic spine
CPT/HCPCS: 99283; 99284

== ENCOUNTER 2022-01-02 02:52 | Outpatient (CLI) | payer OTHER, SELFPAY ==
[2022-01-02 07:17] LABS: Abs Immature Grans 0.04 10^3/uL (0.0-0.06); Absolute Basophil Count 0.07 10^3/uL (0.0-0.2); Absolute Lymphocyte Count 3.21 10^3/uL (1.2-3.4); Absolute Monocyte Count 0.91 10^3/uL (0.1-0.8); Absolute Neutrophil Count 7.13 10^3/uL (1.2-6.7); Basophils % 0.6; Eosinophils % 1.7; HCT 42.2 % (36.0-46.0); HGB 13.6 g/dL (11.2-15.7); Immature Grans % 0.3; Lymphocytes % 27.8; MCH 28.3 pg (27.0-33.0); MCHC 32.2 % (32.0-36.0); MCV 88 fL (80-95); MPV 9.1 fL (8.0-11.0); Monocytes % 7.9; Neutrophils % 61.7; Platelet Count 386 10^3/uL (130-400); RDW 13.8 % (11.7-14.6); RDW-SD 44.3 fL; WBC 11.56 10^3/uL (4.4-10.8)
[2022-01-02 09:47] LABS: ALT 31 U/L (14-59); AST 17 U/L (15-37); Albumin 3.6 g/dL (3.4-5.0); Alkaline Phosphatase 77 U/L (46-116); Anion Gap 12.1 mmol/L (3-11); BUN 13 mg/dL (7-18); Bilirubin, Total 0.5 mg/dL (0.2-1.0); CO2 23.9 mmol/L (21.0-32.0); CREATININE 0.8 mg/dL (0.55-1.02); Calcium 8.9 mg/dL (8.5-10.1); Calculated LDL 149 mg/dL (<100); Chloride 105 mmol/L (98-107); Cholesterol 254 mg/dL (<200); Folate 18.6 ng/mL (8.6-20.0); Glucose 104 mg/dL (74-106); HDL Cholesterol 36 mg/dL (40-60); Sodium 141 mmol/L (136-145); TSH 1.57 uIU/mL (0.36-3.74); Total Protein 7.2 g/dL (6.4-8.2); Triglyceride 346 mg/dL (<150); Vitamin B12 834 pg/mL (193-986)
[2022-01-02 14:52] LABS: FREE T4 0.87 ng/dL (0.76-1.46)
[2022-01-03 10:17] LABS: Hepatitis C Ab w Rflx HCV PCR Negative (Negative)
[2022-01-03 10:30] LABS: HIV-1/2 Ag & Ab Screen Negative (Negative)
[2022-01-05 17:38] LABS: Lab Add On Test DONE
[2022-01-05 18:27] LABS: Hemoglobin A1C 5.8 % (<5.7)
== END 2022-01-02 02:53 | disposition home or self-care (01) ==
LOC: LBO 02:52
PROVIDERS: PCP Nurse Practitioner Adult Health; Visit Provider Nurse Practitioner Adult Health
DX: F43.20 Adjustment disorder, unspecified (principal); E66.9 Obesity, unspecified; Z13.1 Encounter for screening for diabetes mellitus; Z13.220 Encounter for screening for lipoid disorders; Z11.4 Encounter for screening for human immunodeficiency virus [HIV]; Z11.59 Encounter for screening for other viral diseases
CPT/HCPCS: 36415; 80053; 80061; 86803; 87389; 82607; 82746; 83036; 84439; 84443; 85025

== ENCOUNTER 2022-01-17 01:45 | Outpatient (CLI) | payer OTHER, SELFPAY ==
--- NOTE | 2022-01-17 13:45 | DI.MRI_ITS ---
Exam(s) MR THORACIC SPINE WO EXAM: MR THORACIC SPINE WO CLINICAL HISTORY: Increased pain and spasm,chronic thoracic back pain, m54.6,g89.29. TECHNIQUE: Multiplanar multisequence MRI of the Thoracic spine was performed. COMPARISON: MR MR THORACIC SPINE WO from 09/01/2020 FINDINGS: Bones: The vertebral body heights are well maintained. Alignment is satisfactory. Multilevel degenera tive endplate signal changes and osteophytes are seen in the mid and lower thoracic spine. Cord: The thoracic cord is normal size and signal intensity. There has been no change in the mild pr ominence of the central canal in the spinal cord. Discs: There is a stable mild diffuse disc bulge at T6-T7. No significant central spinal canal or ne ural foraminal stenosis is seen in the thoracic spine. Soft tissues: Normal. IMPRESSION: 1. Stable appearance of the thoracic spine compared to 09/01/2020. 2. No significant central spinal canal or neural foraminal stenosis is seen in the thoracic spine. DATA REPOSITORY:
== END 2022-01-17 02:05 ==
LOC: DI 01:45
PROVIDERS: PCP Nurse Practitioner Adult Health; Visit Provider Nurse Practitioner Family
DX: M62.830 Muscle spasm of back (principal)
CPT/HCPCS: 72146

== ENCOUNTER 2022-02-23 11:50 | Outpatient (REF) | payer OTHER, SELFPAY ==
[2022-02-25 11:07] LABS: COVID-19 RT-PCR UVMMC Result Negative (Negative)
== END 2022-02-23 11:51 | disposition home or self-care (01) ==
LOC: LBN 11:50
PROVIDERS: PCP Nurse Practitioner Adult Health; Visit Provider Nurse Practitioner Adult Health
DX: Z20.822 Contact with and (suspected) exposure to COVID-19 (principal)
CPT/HCPCS: U0003

== ENCOUNTER 2022-02-26 04:43 | Emergency (ER) | payer OTHER, SELFPAY ==
[2022-02-26 04:49] VITALS: BP 142/93; PULSE 93; RESP 16; TEMP 37.3; O2SAT 97
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
[2022-02-26] MEDS: Benzonatate 200 MG CAP PO (05:15)
[2022-02-26] MEDS: Inhaler, Assist Device 1 EACH MC (05:15)
[2022-02-26] MEDS: Doxycycline Hyclate 100 MG, 2 CAPS/BTL PO (05:15)
[2022-02-26] MEDS: Budesonide/Formoterol 160/4.5 6 GM 60 PUFF INH IH (05:15)
== END 2022-02-26 05:17 | disposition home or self-care (01) ==
PROVIDERS: Emergency Provider Student in an Organized Health Care Education/Training Program; PCP Nurse Practitioner Adult Health
DX: J18.9 Pneumonia, unspecified organism (principal); I10 Essential (primary) hypertension
CPT/HCPCS: 99283; 99284

== ENCOUNTER 2022-03-07 16:31 | Emergency (ER) | payer OTHER, SELFPAY ==
--- NOTE | 2022-03-07 16:30 | DI.CT_ITS ---
Exam(s) CT ABDOMEN PELVIS W EXAM: CT ABDOMEN PELVIS W CLINICAL HISTORY: Abd Pain, Hx of hernia TECHNIQUE: Imaging Protocol: Axial computed tomography images with coronal and sagittal reformatted images were created and reviewed CONTRAST MATERIAL: Intravenous: Omnipaque 350 Contrast volume:100 mL Oral: No COMPARISON: Comparison with prior examinations. FINDINGS: ABDOMEN: Lung Bases: Normal where visualized. There is a small hiatal hernia. Liver: Normal density. No measurable mass. Portal, Superior Mesenteric, and Splenic Veins: Unremarkable. Gallbladder and Biliary Tract: No radiodense calculus or dilation. Pancreas: Normal density, no abnormal calcifications or inflammatory process. Spleen: Normal. Adrenals: No masses seen. Kidneys: Normal size, contour and axis. No radiodense stones or obstructive uropathy. No masses seen. Abdominal Aorta: Abdominal portion non-dilated. Bowel: No obstruction or bowel wall thickening. Appendix is unremarkable. Peritoneal Cavity: No ascites, collection or mesenteric inflammatory response. No free air. Lymph Nodes: Within normal limits. Bones: Within normal limits for the patient's age. Soft Tissues: There is again seen a complex anterior midline abdominal wall hernia. It is unchanged in size. There is however now infiltration in the fat within the hernia particularly at its inferior aspect. There is no bowel seen within the hernia. PELVIS: Bladder: Symmetric distention, no gross wall thickening. Reproductive Organs: There is an IUD which is in good position. Lymph Nodes: Within normal limits. Bones: Within normal limits for the patient's age. IMPRESSION: 1. Large complex abdominal wall fat containing hernia. There is increased infiltration of the fat wi thin the hernia since 02/15/2022. The hernia contains no bowel. This may represent fat strangulation within the hernia. No focal fluid collection is seen to suggest an abscess. 2. No evidence of bowel obstruction. 3. Findings were discussed with the emergency department on the date of the examination. RADIATION DOSE DELIVERED: 1,576.19mGy.cm Total DLP DATA REPOSITORY: All CT scans at this facility are submitted to the National Radiology Data Registry (NRDR) Dose Index Registry (DIR) with the [employer] (ACR). RADIATION OPTIMIZATION: All CT scans at this facility use at least one of these dose optimization te chniques: automated exposure control; mA and/or kV adjustment per patient size (includes targeted exa ms where dose is matched to clinical indication); or iterative reconstruction.
[2022-03-07 16:35] VITALS: BP 145/93; PULSE 80; RESP 18; TEMP 36.7; O2SAT 98
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
[2022-03-07] MEDS: Ondansetron 4 MG/2 ML VIAL IVP (17:45)
[2022-03-07] MEDS: Normal Saline 1,000 ML 1000 ML IV (17:46)
[2022-03-07 17:59] LABS: Abs Immature Grans 0.03 10^3/uL (0.0-0.06); Absolute Basophil Count 0.06 10^3/uL (0.0-0.2); Absolute Eosinophil Count 0.16 10^3/uL (0.0-0.7); Absolute Lymphocyte Count 3.34 10^3/uL (1.2-3.4); Absolute Neutrophil Count 7.87 10^3/uL (1.2-6.7); Basophils % 0.5; Eosinophils % 1.3; HCT 44.7 % (36.0-46.0); HGB 14.8 g/dL (11.2-15.7); Immature Grans % 0.2; Lymphocytes % 26.8; MCH 28.4 pg (27.0-33.0); MCHC 33.1 % (32.0-36.0); MCV 86 fL (80-95); Neutrophils % 63.2; RBC 5.21 10^6/uL (3.93-5.22); RDW 12.8 % (11.7-14.6); RDW-SD 39.6 fL; WBC 12.45 10^3/uL (4.4-10.8)
[2022-03-07 18:07] LABS: Bilirubin Negative (Negative); Blood Negative (Negative); Clarity Clear (Clear); Glucose Negative (Negative); Ketones Negative (Negative); Leukocyte Esterase Trace (Negative); Nitrite Negative (Negative); Urobilinogen 0.2 EU/dL (Up TO 0.2)
[2022-03-07 18:23] LABS: Platelet Count 409 10^3/uL (130-400)
[2022-03-07 18:24] LABS: Diff Comment PLT Morph Reviewed; RBC Morphology Normal
[2022-03-07 18:25] LABS: ALT 33 U/L (14-59); AST 19 U/L (15-37); Albumin 4.1 g/dL (3.4-5.0); Alkaline Phosphatase 82 U/L (46-116); Anion Gap 6.5 mmol/L (3-11); BUN 10 mg/dL (7-18); Bilirubin, Total 0.7 mg/dL (0.2-1.0); CO2 29.5 mmol/L (21.0-32.0); CREATININE 0.7 mg/dL (0.55-1.02); Calcium 9.5 mg/dL (8.5-10.1); Chloride 101 mmol/L (98-107); Estimated GFR 116.31 (mL/min/1.73m2); Glucose 81 mg/dL (74-106); Lipase 97 U/L (73-393); Magnesium 1.8 mg/dL (1.8-2.4); Potassium 3.6 mmol/L (3.5-5.1); Sodium 137 mmol/L (136-145); Total Protein 8.6 g/dL (6.4-8.2)
[2022-03-07 18:26] VITALS: BP 110/57; PULSE 72; RESP 20; TEMP 36.5; O2SAT 100
[2022-03-07 18:39] LABS: Bacteria Few HPF (Negative); C & S Indicated? No/Sq. Contamination; Casts Negative LPF (Negative); Crystals Negative HPF (Negative); Epithelial Cells Moderate HPF (Negative); Mucus Negative (Negative); RBC Negative HPF (0-2)
[2022-03-07] MEDS: Omnipaque 350 MG/ML 100 ML BTL IV (18:56)
[2022-03-07] MEDS: Normal Saline Flush 10 ML SYR IVP (18:57)
--- NOTE | 2022-03-07 19:22 | DI.VRAD_ITS ---
PROCEDURE INFORMATION: Exam: CT Abdomen And Pelvis With Contrast Exam date and time: 03/07/2022 6:47 PM Age: 36 years old Clinical indication: Other: Abd pain, HX of hernia TECHNIQUE: Imaging protocol: Computed tomography of the abdomen and pelvis with contrast. Radiation optimization: All CT scans at this facility use at least one of these dose optimization techniques: automated exposure control; mA and/or kV adjustment per patient size (includes targeted exams where dose is matched to clinical indication); or iterative reconstruction. Contrast material: OMNIPAQUE 350; Contrast volume: 100 ml; Contrast route: INTRAVENOUS (IV); COMPARISON: CT ABDOMEN PELVIS W 02/15/2022 11:39 AM FINDINGS: Tubes, catheters and devices: An intrauterine device is centered appropriately in the uterus. Lungs: Lung bases are clear. Liver: Normal. No mass. Gallbladder and bile ducts: Normal. No calcified stones. No ductal dilation. Pancreas: Normal. No ductal dilation. Spleen: Normal. No splenomegaly. Adrenal glands: Normal. No mass. Kidneys and ureters: Kidneys enhance symmetrically. Negative for hydronephrosis. Ureters are not dilated. No stones are observed. Stomach and bowel: Unremarkable stomach. Nondilated small bowel. Fat planes around loops of small bowel are indistinct. There are no inflammatory changes observed around the colon. Appendix: Normal appendix. Intraperitoneal space: Mild mesenteric fat stranding. No significant free fluid. Negative for free air. Negative for abscess. Vasculature: No significant vascular calcifications. Negative for abdominal aortic aneurysm. Lymph nodes: Mesenteric lymph nodes are mildly prominent. Negative for pathologic lymphadenopathy. Urinary bladder: No abnormalities. Thin strauss. Reproductive: Anteverted or anteflexed uterus. Negative for adnexal mass or cyst. Bones/joints: No compression fracture. Bulky anterior ossification noted in the thoracic spine. Degenerative changes in the lumbar spine are mild. Normal sacroiliac joints. Moderate narrowing and osteophyte formation noted in both hips. Soft tissues: Complex periumbilical abdominal wall hernia is again noted. Mild fluid and moderate fat stranding are associated with the hernia. Hernia neck 4.7 cm. Hernia sac 9.5 cm. Negative for herniation of bowel, although the transverse colon is closely adjacent to the hernia and is tented toward the hernia. IMPRESSION: 1. Complex periumbilical abdominal wall hernia. 2. No bowel obstruction. 3. Additional findings of enteritis. Dictated and Authenticated by: Igor Porter MD. Ordering:BETTY Felipe MD
[2022-03-07] MEDS: Cephalexin 500 MG CAP PO (20:32)
[2022-03-07] MEDS: Ondansetron O.D.T. 4 MG TABEF, 3 TABS/BTL PO (20:33)
== END 2022-03-07 20:36 | disposition home or self-care (01) ==
PROVIDERS: Emergency Provider Registered Nurse Emergency; PCP Nurse Practitioner Adult Health
DX: K42.9 Umbilical hernia without obstruction or gangrene (principal); R39.198 Other difficulties with micturition; D72.829 Elevated white blood cell count, unspecified; I10 Essential (primary) hypertension
CPT/HCPCS: 36415; 80053; 81025; 83690; 96361; 96374; 99285; 74177; 81003; 81015; 83735; 85025; 99284; J2405; J3490

== ENCOUNTER 2022-04-11 22:19 | Emergency (ER) | payer OTHER, SELFPAY ==
[2022-04-11 22:23] VITALS: BP 133/73; PULSE 87; RESP 18; TEMP 36.5; O2SAT 98
--- NOTE | 2022-04-11 22:45 | DI.RAD_ITS ---
Exam(s) XR RIBS RT W PA LAT CHEST EXAM: XR RIBS RT W PA LAT CHEST CLINICAL HISTORY: fall onto R back, r/o fx R lower ribs TECHNIQUE: COMPARISON: CR,XR XR CHEST 2V PA LATERAL from 04/13/2021 FINDINGS: PA and lateral chest and 4 additional views of the right ribs were obtained. The heart is not enlarg ed. Lungs are clear and normally expanded. No pleural effusion seen. No evidence of rib fracture. IMPRESSION: Negative examination of the chest and right ribs. RADIATION DOSE DELIVERED: Total DLP
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
[2022-04-11] MEDS: Ketorolac 60 MG/2 ML VIAL IM (23:01)
[2022-04-11] MEDS: diazePAM 5 MG TAB 10 MG PO (23:03)
--- NOTE | 2022-04-11 23:32 | DI.VRAD_ITS ---
PROCEDURE INFORMATION: Exam: XR Right Ribs Exam date and time: 04/11/2022 23:10 Age: 36 years old Clinical indication: Right-sided; Painful respiration; Patient HX: Fall onto R back, R/O FX R lower ribs TECHNIQUE: Imaging protocol: Radiologic exam of the Right ribs. Views: 2 views. COMPARISON: CR XR CHEST 2V PA LATERAL 04/13/2021 20:19 FINDINGS: Bones/joints: No acute fracture with attention to the right-sided ribs. Soft tissues: Normal. IMPRESSION: No acute fracture with attention to the right-sided ribs. PROCEDURE INFORMATION: Exam: XR Chest Exam date and time: 04/11/2022 23:10 Age: 36 years old Clinical indication: Right-sided; Painful respiration; Patient HX: Fall onto R back, R/O FX R lower ribs TECHNIQUE: Imaging protocol: Radiologic exam of the chest. Views: 2 views. COMPARISON: CR XR CHEST 2V PA LATERAL 04/13/2021 20:19 FINDINGS: Lungs: No consolidation. Pleural spaces: No pleural effusion. No pneumothorax. Heart/Mediastinum: No cardiomegaly. Bones/joints: No acute fracture. IMPRESSION: No acute cardiopulmonary pathology. Dictated and Authenticated by: Wendy Meyers MD. Ordering:CHEMA Mejía MD
== END 2022-04-11 23:31 | disposition home or self-care (01) ==
PROVIDERS: Emergency Provider Physician Assistant; PCP Nurse Practitioner Adult Health
DX: S30.0XXA Contusion of lower back and pelvis, initial encounter (principal); S23.41XA Sprain of ribs, initial encounter; I10 Essential (primary) hypertension; W01.0XXA Fall on same level from slipping, tripping and stumbling without subsequent striking against object, initial encounter; X50.1XXA Overexertion from prolonged static or awkward postures, initial encounter; Y93.89 Activity, other specified
CPT/HCPCS: 96372; 99284; 71046; 71100; J1885

== ENCOUNTER 2022-05-02 18:36 | Outpatient (REF) | payer OTHER, SELFPAY ==
--- NOTE | 2022-05-02 18:00 | PAPFT_PTH ---
PATIENT: Don Stout LOC: [facility] U#:[id number] AGE/SX: 36/F ROOM: RE05/02/[address]: Beverly Conroy APRN : [id number] BED: DIS: 05/02/2022 SPEC #: [id number] RECD: 05/03/22 12:54 STATUS: MARILEE REQ #: [id number] AZRA: 05/02/22 18:[address]: Beverly Conroy DEPT: [facility] Cytology RECD BY: Rocío Gomez Tissues: 1 - CX/ENDOCX FOR PAP SMEARS Procedures: PAP THIN PREP/UVM Screening HPV DNA PROBE Comments: [id number]
[2022-05-04 17:31] LABS: Chlamydia Result Negative (Negative); GC Result Negative (Negative)
== END 2022-05-02 18:37 | disposition home or self-care (01) ==
LOC: LBN 18:36
PROVIDERS: PCP Nurse Practitioner Adult Health; Visit Provider Nurse Practitioner Adult Health
DX: Z00.00 Encounter for general adult medical examination without abnormal findings (principal); Z11.3 Encounter for screening for infections with a predominantly sexual mode of transmission; Z12.4 Encounter for screening for malignant neoplasm of cervix; Z11.51 Encounter for screening for human papillomavirus (HPV)
CPT/HCPCS: 87491; 87591; 88142; 87480; 87510; 87624; 87660

== ENCOUNTER 2022-05-09 11:01 | Outpatient (CLI) | payer OTHER, SELFPAY ==
--- NOTE | 2022-05-09 06:00 | DI.RAD_ITS ---
Exam(s) XR PAIN CLINIC THORACIC SP 2V EXAM: XR PAIN CLINIC THORACIC SP 2V CLINICAL HISTORY: Dx: Lumbar Radiculpathy. TECHNIQUE: Fluoroscopy was provided for the referring physician for guidance with performing pain cl inic injection procedure. COMPARISON: No exams were available for comparison FINDINGS: Please see procedure note for details. Fluoro time: 48.0 seconds RADIATION DOSE DELIVERED: Kar=14.43 mGy
[2022-05-09 11:23] VITALS: BP 135/80; PULSE 93; RESP 20; TEMP 36.7; O2SAT 97
--- NOTE | 2022-05-09 12:03 | PDOC.PAIN ---
Date of service: 05/09/22 Time of Service: 12:03 Pain Clinic Procedure Note Procedure Note Procedure Note: Thoracic Epidural Steroid Injection Don Stout has been referred to the [facility] for cervical epidural steroid injection. COMMENTS: She did very well with her last TESI on 11/08/21. This has allowed her to continue working and do her home exercises. Pre-procedure pain VAS was 6/10. Dx: Thoracic radiculopathy Girish was interviewed and the medical record reviewed. There were no medical, pharmacologic, radiographic or other structural contraindications to attempting fluoroscopically guided epidural steroid injection. Risks and expected side effects as well as potential benefit of the procedure were reviewed with Ms. Stout , and Ms. Stout voiced concerns addressed. The printed consent form was signed and witnessed. Standard time-out procedure was performed. The patient was placed in the prone position on the fluoroscopy table and automated blood pressure cuff and pulse oximeter applied. The skin entry point for entering the epidural space by a midline T6-T7 interlaminar approach was identified under fluoroscopy and marked. Following thorough Chlorhexadine preparation of the skin and draping and 1% lidocaine infiltration of the skin entry point and subcutaneous tissues, an 18 gauge Tuohy needle was placed under fluoroscopic guidance and with loss of resistance technique into the T6-T7 epidural space. Upon needle placement and loss of resistance there were no paresthesiae or return of blood or CSF through the needle. 1 cc of Omnipaque 240 was injected with clear epidural spread in the A/P, lateral and oblique views. 15 mg of preservative free Dexomethasone was injected with no unusual discomfort expressed by Ms. Stout. This was flushed with 1 cc of normal saline. Ms. Stout 's vital signs were stable throughout the procedure and were as recorded in the docflowsheet by the nursing staff. Follow up plans and appointments were discussed with the Ms. Stout. Post procedure instruction was given as documented in nursing documentation and having met discharge criteria, Ms. Stout was discharged from the [facility]. COMMENTS: Post-procedure pain VAS was 2/10. If this procedure remains effective, it can be completed up to 3 times per 12 month period if needed. Zhang Osborne DO, MPH [facility] CC: Beverly Conroy APRN
[2022-05-09] MEDS: Dexamethasone Sod. Phos./Pres-Free 10 MG/ML VIAL IJ (12:11)
[2022-05-09 12:12] VITALS: BP 150/93; PULSE 79; RESP 17; O2SAT 97
== END 2022-05-09 11:02 | disposition home or self-care (01) ==
LOC: PC 11:03
PROVIDERS: PCP Nurse Practitioner Adult Health; Visit Provider Preventive Medicine Occupational Medicine
DX: M54.14 Radiculopathy, thoracic region (principal)
CPT/HCPCS: 62321; 72070

== ENCOUNTER 2022-06-17 21:07 | Emergency (ER) | payer OTHER, SELFPAY ==
[2022-06-17 21:12] VITALS: BP 134/63; PULSE 116; RESP 18; TEMP 37; O2SAT 97
--- NOTE | 2022-06-17 21:20 | DI.CT_ITS ---
Exam(s) CT ABDOMEN PELVIS W EXAM: CT ABDOMEN PELVIS W CLINICAL HISTORY: vomiting and diarrhea for 8 days, mid abd pain. TECHNIQUE: Imaging Protocol: Axial computed tomography images with coronal and sagittal reformatted images were created and reviewed CONTRAST MATERIAL: Intravenous: Omnipaque-350 100cc Oral: None COMPARISON: CT CT ABDOMEN PELVIS W from 03/07/2022 FINDINGS: VISUALIZED LUNG BASES: No nodules nor pleural effusions evident. Mild platelike atelectasis in the r ight lung base again noted. ABDOMEN: There is no ascites. LIVER: Liver is again noted be hypodense implying steatosis. There are no discrete focal hepatic les ions identified. GALLBLADDER/BILIARY: No obvious gallbladder pathology. CBD is not dilated. PANCREAS: No evidence of pancreatic mass nor dilatation of the pancreatic duct. SPLEEN: Spleen is not enlarged. No obvious intrasplenic lesions. Splenic and portal veins are paten t. ADRENALS: There are no significant adrenal masses. KIDNEYS:No cysts evident. No solid renal masses. No calculi nor hydronephrosis.. ABDOMINAL AORTA: Abdominal aorta is not enlarged. LYMPH NODES:There is no retroperitoneal nor paraaortic adenopathy. ABDOMINAL WALL: There are again noted midline anterior abdominal hernias at and above the umbilicus. The more superior of these 2 hernias now contains part of a loop of the transverse colon which is ne w. There is no transition point at this level. No bowel obstruction at this level nor elsewhere. T he slightly larger hernia sac below this level in the midline appears unchanged and does not contain bowel loops. GI: There is no evidence of bowel obstruction, free air, nor abscess. PELVIS: GI: No evidence of appendicitis.No evidence of sigmoid diverticulitis. LYMPH NODES: There is no intrapelvic nor inguinal adenopathy. REPRODUCTIVE: There is an IUD in satisfactory position in the endometrial canal. There is again note d a uterine fibroid in the left side of the fundus of the uterus which measures 2.5 x 2.5 cm.. Ovari an size is upper normal for this age group. There are no extraovarian adnexal masses. URINARY BLADDER: No calculi nor obvious masses evident OSSEOUS: No significant osseous lesions. No fractures. SI joints unremarkable. IMPRESSION: 1. Compared to the prior CT scan of 03/07/2022 there are again noted contiguous anterior abdominal wa ll midline hernias. However, on the present study the more superior of these hernias contains part o f a loop of the transverse colon and there is some surrounding fat streaking. Although there is no o bvious bowel obstruction at this level, this is nevertheless a significant finding and surgical consu ltation is recommended. 2. IUD is again noted to be in the uterus in satisfactory position. Fundal fibroid again noted measu ring approximately 2.5 x 2.5 cm. 3. Other findings as above. First read by [facility]. RADIATION DOSE DELIVERED: 1,455.82mGy.cm Total DLP DATA REPOSITORY: All CT scans at this facility are submitted to the National Radiology Data Registry (NRDR) Dose Index Registry (DIR) with the [employer] (A[employer]). RADIATION OPTIMIZATION: All CT scans at this facility use at least one of these dose optimization te chniques: automated exposure control; mA and/or kV adjustment per patient size (includes targeted exa ms where dose is matched to clinical indication); or iterative reconstruction.
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
[2022-06-17 21:33] LABS: Abs Immature Grans 0.05 10^3/uL (0.0-0.06); Absolute Eosinophil Count 0.07 10^3/uL (0.0-0.7); Basophils % 0.1; Eosinophils % 0.5; HCT 46.3 % (36.0-46.0); HGB 15.3 g/dL (11.2-15.7); Immature Grans % 0.4; Lymphocytes % 31.5; MCH 28.3 pg (27.0-33.0); MCV 86 fL (80-95); MPV 9.4 fL (8.0-11.0); Neutrophils % 58.5; Platelet Count 496 10^3/uL (130-400); RBC 5.41 10^6/uL (3.93-5.22); RDW 12.9 % (11.7-14.6); RDW-SD 39.5 fL; WBC 14.28 10^3/uL (4.4-10.8)
[2022-06-17 21:34] LABS: Absolute Basophil Count 0.01 10^3/uL (0.0-0.2); Absolute Monocyte Count 1.29 10^3/uL (0.1-0.8); Absolute Neutrophil Count 8.35 10^3/uL (1.2-6.7)
[2022-06-17 21:35] LABS: Bilirubin Small (Negative); Blood Large (Negative); Clarity Sl Cloudy (Clear); Glucose Negative (Negative); Ketones 15 mg/dL (Negative); Leukocyte Esterase Trace (Negative); Nitrite Negative (Negative); Specific Gravity >= 1.030 (1.005-1.025); Urobilinogen 0.2 EU/dL (Up TO 0.2)
[2022-06-17] MEDS: Normal Saline 1,000 ML 1000 ML IV (21:35)
[2022-06-17] MEDS: Ondansetron 4 MG/2 ML VIAL IVP (21:35)
[2022-06-17 21:47] LABS: Bacteria Few HPF (Negative); C & S Indicated? Yes; Crystals Mod Calcium Oxalate HPF (Negative); Epithelial Cells Few HPF (Negative); Mucus Moderate (Negative)
[2022-06-17 21:47] LABS: ALT 27 U/L (14-59); AST 23 U/L (15-37); Albumin 3.9 g/dL (3.4-5.0); Alkaline Phosphatase 83 U/L (46-116); Anion Gap 8.7 mmol/L (3-11); BUN 7 mg/dL (7-18); Bilirubin, Total 0.6 mg/dL (0.2-1.0); CO2 27.3 mmol/L (21.0-32.0); CREATININE 0.8 mg/dL (0.55-1.02); Calcium 9.4 mg/dL (8.5-10.1); Chloride 101 mmol/L (98-107); Estimated GFR 99.09 (mL/min/1.73m2); Glucose 105 mg/dL (74-106); Lipase 76 U/L (73-393); Potassium 3.3 mmol/L (3.5-5.1); Sodium 137 mmol/L (136-145); Total Protein 7.9 g/dL (6.4-8.2)
[2022-06-17] MEDS: Omnipaque 350 MG/ML 100 ML BTL IJ (22:17)
[2022-06-17] MEDS: Normal Saline - Diluent 50 ML VIAL IJ (22:18)
[2022-06-17] MEDS: Normal Saline Flush 10 ML SYR IVP (22:18)
[2022-06-17 22:43] VITALS: BP 131/83; PULSE 83; RESP 20; O2SAT 99
[2022-06-17] MEDS: Metoclopramide 10 MG/2 ML VIAL IVP (22:50)
--- NOTE | 2022-06-17 22:56 | DI.VRAD_ITS ---
PROCEDURE INFORMATION: Exam: CT Abdomen And Pelvis With Contrast Exam date and time: 06/17/2022 10:21 PM Age: 36 years old Clinical indication: Vomiting and other: Diarrhea, mid abd pain; Prior surgery; Surgery date: 6+ months; Surgery type: Hernia surgery 2007; Patient HX: Vomiting and diarrhea for 8 days, mid abd pain TECHNIQUE: Imaging protocol: Computed tomography of the abdomen and pelvis with contrast. Contrast material: OMNIPAQUE 350; Contrast volume: 100 ml; Contrast route: INTRAVENOUS (IV); COMPARISON: CT ABDOMEN PELVIS W 03/07/2022 6:47 PM FINDINGS: Liver: Normal. No mass. Gallbladder and bile ducts: Normal. No calcified stones. No ductal dilation. Pancreas: Normal. No ductal dilation. Spleen: Normal. No splenomegaly. Adrenal glands: Normal. No mass. Kidneys and ureters: Normal. No hydronephrosis. Stomach and bowel: No evidence of bowel obstruction. Appendix: No evidence of appendicitis. Intraperitoneal space: Unremarkable. No free air. No significant fluid collection. Vasculature: Unremarkable. No abdominal aortic aneurysm. Lymph nodes: Unremarkable. No enlarged lymph nodes. Urinary bladder: Unremarkable as visualized. Reproductive: IUD in place. Uterine fibroid suggested. Bones/joints: Unremarkable. No acute fracture. Soft tissues: Fat and colon containing periumbilical ventral hernias. IMPRESSION: No acute finding. Dictated and Authenticated by: Igor Montanez MD. Ordering:JAKE Sylvester MD
[2022-06-17 23:04] LABS: C Diff PCR Negative (Negative)
[2022-06-17] MEDS: Lactated Ringers 1,000 ML 1000 ML IV (23:10)
[2022-06-18] MEDS: Fosfomycin Tromethamine 3 GM PACKET PO (00:06)
[2022-06-18 00:07] VITALS: BP 145/49; PULSE 96; RESP 16; O2SAT 96
[2022-06-19 10:44] LABS: Campylobacter PCR Negative (Negative); Salmonella PCR Negative (Negative); Shiga Toxin PCR Negative (Negative); Shigella/Enteroinvasive Ecoli Negative (Negative)
== END 2022-06-18 00:14 | disposition home or self-care (01) ==
PROVIDERS: Emergency Provider Student in an Organized Health Care Education/Training Program; PCP Nurse Practitioner Adult Health
DX: N39.0 Urinary tract infection, site not specified (principal); R19.7 Diarrhea, unspecified; R11.10 Vomiting, unspecified; R00.0 Tachycardia, unspecified; I10 Essential (primary) hypertension; J45.909 Unspecified asthma, uncomplicated; Z87.19 Personal history of other diseases of the digestive system; Z79.899 Other long term (current) drug therapy; Z98.890 Other specified postprocedural states
CPT/HCPCS: 80053; 81025; 83690; 87329; 87493; 87505; 96361; 96374; 96375; 99285; 74177; 81003; 81015; 85025; 87086; 87177; 99284; J2405; J2765; J3490

== ENCOUNTER 2022-07-09 16:16 | Outpatient (REF) | payer OTHER, SELFPAY | END 2022-07-09 16:17 | disposition home or self-care (01) | LOC: LBN 16:16 | PROVIDERS: PCP Nurse Practitioner Adult Health; Visit Provider Nurse Practitioner Adult Health | DX: R30.0 Dysuria (principal); R82.998 Other abnormal findings in urine | CPT/HCPCS: 87077; 87086; 87186 ==

== ENCOUNTER 2022-07-15 07:00 | Outpatient (CLI) | payer OTHER, SELFPAY ==
[2022-07-15 07:26] LABS: Abs Immature Grans 0.03 10^3/uL (0.0-0.06); Absolute Basophil Count 0.05 10^3/uL (0.0-0.2); Absolute Eosinophil Count 0.36 10^3/uL (0.0-0.7); Absolute Lymphocyte Count 2.62 10^3/uL (1.2-3.4); Absolute Monocyte Count 0.92 10^3/uL (0.1-0.8); Absolute Neutrophil Count 5.18 10^3/uL (1.2-6.7); Basophils % 0.5; Eosinophils % 3.9; HCT 43.8 % (36.0-46.0); HGB 14.1 g/dL (11.2-15.7); Immature Grans % 0.3; Lymphocytes % 28.6; MCH 28.1 pg (27.0-33.0); MCHC 32.2 % (32.0-36.0); MCV 87 fL (80-95); MPV 9.5 fL (8.0-11.0); Neutrophils % 56.7; Platelet Count 460 10^3/uL (130-400); RBC 5.02 10^6/uL (3.93-5.22); RDW-SD 40.9 fL; WBC 9.16 10^3/uL (4.4-10.8)
[2022-07-15 07:35] LABS: Hemoglobin A1C 5.3 % (<5.7)
[2022-07-15 08:06] LABS: ALT 18 U/L (14-59); AST 13 U/L (15-37); Albumin 4.1 g/dL (3.4-5.0); Alkaline Phosphatase 76 U/L (46-116); Anion Gap 8.4 mmol/L (3-11); BUN 12 mg/dL (7-18); Bilirubin, Total 0.7 mg/dL (0.2-1.0); CO2 27.6 mmol/L (21.0-32.0); CREATININE 0.8 mg/dL (0.55-1.02); Calcium 9.5 mg/dL (8.5-10.1); Calculated LDL 137 mg/dL (<100); Chloride 104 mmol/L (98-107); Cholesterol 205 mg/dL (<200); Estimated GFR 99.09 (mL/min/1.73m2); Ferritin 100 ng/mL (8-252); Glucose 97 mg/dL (74-106); HDL Cholesterol 39 mg/dL (40-60); Potassium 4.3 mmol/L (3.5-5.1); Sodium 140 mmol/L (136-145); TSH 1.04 uIU/mL (0.36-3.74); Total Protein 7.8 g/dL (6.4-8.2); Triglyceride 147 mg/dL (<150); Vitamin B12 693 pg/mL (193-986)
[2022-07-15 08:26] LABS: FREE T4 1.06 ng/dL (0.76-1.46)
[2022-07-15 08:42] LABS: Vitamin D 25 Total 24.3 ng/mL (30-100)
[2022-07-15 17:19] LABS: T3, Total 164 ng/dL (97-169)
[2022-07-16 09:17] LABS: Insulin 17.3 uIU/mL (<29.0)
== END 2022-07-15 07:01 | disposition home or self-care (01) ==
PROVIDERS: PCP Nurse Practitioner Adult Health; Visit Provider Surgery
DX: R73.03 Prediabetes (principal); E66.01 Morbid (severe) obesity due to excess calories; Z68.43 Body mass index [BMI] 50.0-59.9, adult; F41.8 Other specified anxiety disorders; F32.89 Other specified depressive episodes
CPT/HCPCS: 36415; 80053; 80061; 82306; 82607; 82728; 83036; 83525; 84439; 84443; 84480; 85025

== ENCOUNTER 2022-11-15 12:03 | Outpatient (CLI) | payer OTHER, SELFPAY ==
[2022-11-15 12:25] VITALS: BP 135/92; PULSE 83; RESP 20; TEMP 36.7; O2SAT 98
--- NOTE | 2022-11-15 13:15 | PDOC.PAIN_ITS ---
Date of service: 11/15/22 Time of Service: 13:28 Pain Managment Procedure Note Procedure Note Procedure Note: THORACIC INTERLAMINAR EPIDURAL STERIOID INJECTION PROCEDURE NOTE Don Stout has been referred to the [facility] for a thoracic epidural steroid injection. Pre-operative diagnosis: Thoracic Radiculopathy Post-operative diagnosis: Same Pre-Procedure Pain: VAS= 7/10 Comments: She last had this procedure in April 2022 and had >5 months of >50% pain relief and was able to work. The patient complains of low back pain with pain radiating around the chest. Don was greeted by the nurse who verified patients name and . The patient was then taken to the fluoroscopy suite. Don was interviewed and the medical record reviewed. There were no medical, pharmacologic, radiographic, or other structural contraindications to attempting fluoroscopically guided lumbar epidural steroid injection. Risks and potential side effects, as well as potential benefits of the procedure were reviewed with Ms. Stout. Her voiced concerns were addressed. After I was assured that informed consent was obtained, the patient consent form was signed. Standard time-out procedure was performed. Don was placed in the prone position on the fluoroscopy table and automated blood pressure cuff and pulse oximeter applied. The skin entry point for entering/approaching the epidural space for the lumbar epidural steroid injection was marked. Following thorough chlorhexadine preparation of the skin and draping and 1% lidocaine infiltration of the skin entry point and subcutaneous tissues, an 18 gauge Touhy needle was placed and advanced under fluoroscopic guidance and with loss of resistance technique into the T6-T7 epidural space. Needle tip placement and depth were aided and confirmed by fluoroscopy. There was no paresthesia or return of blood or CSF through the needle. 2 mls of Omnipaque 240 was injected with clear epidural spread confirmed with fluoroscopy. 15 mg of preservative-free Dexamethasone (10 mg/cc) was injected. This was followed by 1 ml of preservative-free normal saline to flush the steroid out of the needle. There was not any unusual discomfort expr essed by AnaMinnie and the needle was removed. (48 mls of Omnipaque and 5 mg of Dexamethasone was wasted) Don's vital signs were stable throughout the procedure and were as recorded in nursing records. Follow up plans and appointments were discussed with Eronnn . The patient is set to follow up with our office. Post procedure instruction was given as documented in nursing records and having met discharge criteria he was [facility] from the [facility]. Post Procedure Pain: VAS= 2/10 Comments: If this procedure is successful in helping with pain and improving her function, it can be completed a maximum of 4 times every 12 months. I personally performed this entire procedure. Zhang Osborne DO, MPH ABPMR-subspecialty board certification in Pain Medicine [facility]
--- NOTE | 2022-11-15 13:18 | DI.RAD_ITS ---
Exam(s) XR PAIN CLINIC THORACIC SP 2V EXAM: XR PAIN CLINIC THORACIC SP 2V CLINICAL HISTORY: Dx: Thoracic Radiculopathy TECHNIQUE: 2D and realtime digital imaging was performed. CONTRAST MATERIAL: Refer to procedure report. COMPARISON: No exams were available for comparison FINDINGS: Fluoroscopy was provided for Dr. Osborne during the performance of a thoracic epidural steroid injectio n. Please refer to the procedure report for complete details. Ka,r=14.3 mGy IMPRESSION:
[2022-11-15 13:31] VITALS: BP 146/96; PULSE 90; RESP 16; O2SAT 100
[2022-11-15] MEDS: Dexamethasone Sod. Phos./Pres-Free 10 MG/ML VIAL IJ (13:34)
[2022-11-15] MEDS: Omnipaque 240 MG/ML 50 ML BTL IJ (13:34)
== END 2022-11-15 12:04 | disposition home or self-care (01) ==
PROVIDERS: PCP Nurse Practitioner Adult Health; Visit Provider Preventive Medicine Occupational Medicine
DX: M54.14 Radiculopathy, thoracic region (principal)
CPT/HCPCS: 62321; 72070; Q9967

== ENCOUNTER 2023-01-30 14:08 | Outpatient (REF) | payer OTHER, SELFPAY ==
[2023-01-30 14:08] LABS: Bilirubin Negative (Negative); Blood Moderate (Negative); Clarity Cloudy (Clear); Glucose Negative (Negative); Ketones Trace mg/dL (Negative); Leukocyte Esterase Moderate (Negative); Nitrite Negative (Negative); Specific Gravity >= 1.030 (1.005-1.025); Urobilinogen 0.2 mg/dL (Up to 0.2); pH 5.5 (5-8)
[2023-01-30 14:24] LABS: C & S Indicated? Yes; WBC >50 HPF (0-5)
== END 2023-01-30 14:09 | disposition home or self-care (01) ==
LOC: LBN 14:08
PROVIDERS: PCP Nurse Practitioner Adult Health; Visit Provider Nurse Practitioner Adult Health
DX: R39.11 Hesitancy of micturition (principal); N39.0 Urinary tract infection, site not specified
CPT/HCPCS: 87077; 81003; 81015; 87086; 87186

== ENCOUNTER 2023-02-10 20:11 | Emergency (ER) | payer OTHER, SELFPAY ==
[2023-02-10 20:14] VITALS: BP 145/98; PULSE 89; RESP 16; TEMP 37.1; O2SAT 99
--- NOTE | 2023-02-10 20:25 | NUR.NOTE ---
Nursing Note: Instructed by electrical discharge machine operatorYADY Medrano to place patient in lobby room 10.
--- NOTE | 2023-02-10 20:30 | DI.CT_ITS ---
Exam(s) CT ABDOMEN PELVIS W EXAM: CT ABDOMEN PELVIS W CLINICAL HISTORY: right upper abdomen and back pain TECHNIQUE: Imaging Protocol: Axial computed tomography images with coronal and sagittal reformatted images were created and reviewed CONTRAST MATERIAL: Intravenous: Omnipaque 350 Contrast volume:100 mL Oral: No COMPARISON: CT CT ABDOMEN PELVIS W from 06/17/2022 FINDINGS: ABDOMEN: Lung Bases: Atelectasis is seen in the lung bases. No focal consolidating infiltrates. Liver: Normal density. No measurable mass. Mild hepatomegaly. Portal, Superior Mesenteric, and Splenic Veins: Unremarkable. Gallbladder and Biliary Tract: No radiodense calculus or dilation. Pancreas: Normal density, no abnormal calcifications or inflammatory process. Spleen: Normal. Adrenals: No masses seen. Kidneys: Normal size, contour and axis. No radiodense stones or obstructive uropathy. No masses seen. Abdominal Aorta: Abdominal portion non-dilated. Bowel: There are contiguous midline anterior abdominal wall hernias. It contains a loop of transvers e colon. There hernia appears slightly enlarged compared to the prior examination. There is mild di latation of the colon proximal to the hernia. There may be mild bowel wall thickening in of the padilla sverse colon within the hernia. There are fluid-filled mildly dilated loops of small bowel. No chata l wall thickening is seen in the small bowel. Appendix is unremarkable. Peritoneal Cavity: No ascites, collection or mesenteric inflammatory response. No free air. Lymph Nodes: Within normal limits. Bones: Within normal limits for the patient's age. Soft Tissues: Please see above under bowel. PELVIS: Bladder: Symmetric distention, no gross wall thickening. Reproductive Organs: There is an IUD in good position. Lymph Nodes: Within normal limits. Bones: Within normal limits for the patient's age. IMPRESSION: Anterior abdominal wall hernia containing a loop of transverse colon. There is question of mild thic kening of the wall of the transverse colon and mild dilatation of the bowel proximally including the small bowel. Obstruction cannot be excluded. Please correlate clinically with respect to reduce stefany lity. RADIATION DOSE DELIVERED: 1,224.62mGy.cm Total DLP DATA REPOSITORY: All CT scans at this facility are submitted to the National Radiology Data Registry (NRDR) Dose Index Registry (DIR) with the [employer] ([employer]). RADIATION OPTIMIZATION: All CT scans at this facility use at least one of these dose optimization te chniques: automated exposure control; mA and/or kV adjustment per patient size (includes targeted exa ms where dose is matched to clinical indication); or iterative reconstruction.
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
[2023-02-10] MEDS: diazePAM 10 MG/2 ML SYR 5 MG IVP ×2 (21:09→22:30)
[2023-02-10] MEDS: Ketorolac 15 MG/ML VIAL IVP (21:11)
[2023-02-10] MEDS: Normal Saline 1,000 ML 1000 ML IV (21:12)
[2023-02-10] MEDS: Ondansetron 4 MG/2 ML VIAL IVP (21:12)
[2023-02-10 21:14] LABS: Abs Immature Grans 0.06 10^3/uL (0.0-0.06); Absolute Basophil Count 0.07 10^3/uL (0.0-0.2); Absolute Lymphocyte Count 3.67 10^3/uL (1.2-3.4); Absolute Monocyte Count 1.49 10^3/uL (0.1-0.8); Basophils % 0.4; Eosinophils % 0.5; HCT 45.4 % (36.0-46.0); HGB 14.9 g/dL (11.2-15.7); Immature Grans % 0.4; Lymphocytes % 21.4; MCH 28.5 pg (27.0-33.0); MCHC 32.8 % (32.0-36.0); MCV 87 fL (80-95); MPV 9.1 fL (8.0-11.0); Monocytes % 8.7; Neutrophils % 68.6; Platelet Count 464 10^3/uL (130-400); RBC 5.22 10^6/uL (3.93-5.22); RDW 13.3 % (11.7-14.6); RDW-SD 42.7 fL; WBC 17.14 10^3/uL (4.4-10.8)
[2023-02-10 21:15] LABS: Absolute Eosinophil Count 0.09 10^3/uL (0.0-0.7); Absolute Neutrophil Count 11.76 10^3/uL (1.2-6.7)
[2023-02-10 21:20] LABS: Bilirubin Negative (Negative); Blood Large (Negative); Clarity Sl Cloudy (Clear); Glucose Negative (Negative); Ketones Trace mg/dL (Negative); Leukocyte Esterase Trace (Negative); Nitrite Negative (Negative); Specific Gravity 1.015 (1.005-1.025); Urobilinogen 0.2 mg/dL (Up to 0.2)
[2023-02-10] MEDS: Normal Saline Flush 10 ML SYR IVP (21:21)
[2023-02-10] MEDS: Omnipaque 350 MG/ML 100 ML BTL IJ (21:22)
[2023-02-10] MEDS: Normal Saline - Diluent 50 ML VIAL IJ (21:23)
[2023-02-10 21:30] LABS: Bacteria Few HPF (Negative); C & S Indicated? Yes; Casts Negative LPF (Negative); Crystals Negative HPF (Negative); Epithelial Cells Few HPF (Negative); Mucus Negative (Negative); RBC 20-50 HPF (0-2)
[2023-02-10 21:44] VITALS: BP 133/84; PULSE 83; RESP 18
--- NOTE | 2023-02-10 21:49 | DI.VRAD_ITS ---
PROCEDURE INFORMATION: Exam: CT Abdomen And Pelvis With Contrast Exam date and time: 02/10/2023 9:32 PM Age: 37 years old Clinical indication: Abdominal pain and other: R back/flank; Localized; Right upper quadrant (ruq); Prior surgery; Surgery date: 6+ months; Surgery type: Hernia repair; Patient HX: R back pain radiating into ruq TECHNIQUE: Imaging protocol: Computed tomography of the abdomen and pelvis with contrast. Radiation optimization: All CT scans at this facility use at least one of these dose optimization techniques: automated exposure control; mA and/or kV adjustment per patient size (includes targeted exams where dose is matched to clinical indication); or iterative reconstruction. Contrast material: OMNIPAQUE 350; Contrast volume: 100 ml; Contrast route: INTRAVENOUS (IV); COMPARISON: CT ABDOMEN PELVIS W 06/17/2022 10:21 PM FINDINGS: Liver: Mild hepatomegaly. Gallbladder and bile ducts: Normal. No calcified stones. No ductal dilation. Pancreas: Normal. No ductal dilation. Spleen: Normal. No splenomegaly. Adrenal glands: Normal. No mass. Kidneys and ureters: Normal. No hydronephrosis. Stomach and bowel: There is a moderate-sized fat and bowel containing anterior abdominal wall hernia. There are air-fluid levels with mild bowel distention diffusely seen in small and large bowel. Small bowel loops borderline prominent, nearly 3 cm. Appendix: No evidence of appendicitis. Intraperitoneal space: Unremarkable. No free air. No significant fluid collection. Vasculature: Unremarkable. No abdominal aortic aneurysm. Lymph nodes: Unremarkable. No enlarged lymph nodes. Urinary bladder: The bladder is not well distended. Reproductive: IUD in place. Bones/joints: Unremarkable. No acute fracture. Soft tissues: Unremarkable. IMPRESSION: Nonspecific bowel pattern suggests ileus. Anterior abdominal wall hernia noted with bowel loops contained. Pattern not definitely suggestive of incarceration. Clinical correlation recommended with respect to reduce ability. Dictated and Authenticated by: Morena Espinoza MD. Ordering:OMAR Costa MD
[2023-02-10 22:05] LABS: ALT 17 U/L (14-59); AST 9 U/L (15-37); Albumin 3.3 g/dL (3.4-5.0); Alkaline Phosphatase 72 U/L (46-116); Anion Gap 10.2 mmol/L (3-11); BUN 11 mg/dL (7-18); Bilirubin, Total 0.4 mg/dL (0.2-1.0); CO2 24.8 mmol/L (21.0-32.0); CREATININE 0.9 mg/dL (0.55-1.02); Chloride 101 mmol/L (98-107); Glucose 103 mg/dL (74-106); Lipase 31 U/L (16-77); Magnesium 1.8 mg/dL (1.8-2.4); Potassium 3.7 mmol/L (3.5-5.1); Sodium 136 mmol/L (136-145); Total Protein 6.5 g/dL (6.4-8.2)
--- NOTE | 2023-02-10 22:07 | NUR.NOTE ---
Nursing Note: Report given to Teja Medrano RN. This ends my care of this patient.
[2023-02-10] MEDS: diazePAM 5 MG TAB PO (22:30)
--- NOTE | 2023-02-13 09:54 | NUR.NOTE ---
Nursing Note: in chart for antibiotics
== END 2023-02-10 22:42 | disposition home or self-care (01) ==
PROVIDERS: Emergency Provider Emergency Medicine; PCP Nurse Practitioner Adult Health
DX: M54.6 Pain in thoracic spine (principal); R10.11 Right upper quadrant pain; E78.5 Hyperlipidemia, unspecified; I10 Essential (primary) hypertension
CPT/HCPCS: 80053; 81025; 83690; 96360; 99285; 74177; 81003; 81015; 83735; 85025; 87086; 99284; J1885; J2405; J3360; J3490

== ENCOUNTER 2023-02-11 16:24 | Emergency (ER) | payer OTHER, SELFPAY ==
[2023-02-11 16:30] VITALS: BP 139/81; PULSE 92; RESP 20; TEMP 37; O2SAT 99
[2023-02-11] MEDS: ACETAMINOPHEN 1,000 MG/100 ML BTL 400 MG IVPB (17:29)
[2023-02-11] MEDS: Lidocaine 4% Cream 5 GM TUBE TP (17:30)
[2023-02-11] MEDS: diazePAM 10 MG/2 ML SYR IVP (17:30)
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
== END 2023-02-11 18:45 | disposition home or self-care (01) ==
PROVIDERS: Emergency Provider Nurse Practitioner Family; PCP Nurse Practitioner Adult Health
DX: M54.6 Pain in thoracic spine; G89.29 Other chronic pain
CPT/HCPCS: 96365; 96374; 99284; J0131; J3360

== ENCOUNTER 2023-03-28 08:06 | Outpatient (CLI) | payer OTHER, SELFPAY ==
[2023-03-28 08:17] LABS: Abs Immature Grans 0.03 10^3/uL (0.0-0.06); Absolute Basophil Count 0.06 10^3/uL (0.0-0.2); Absolute Eosinophil Count 0.05 10^3/uL (0.0-0.7); Absolute Lymphocyte Count 2.59 10^3/uL (1.2-3.4); Absolute Monocyte Count 1.01 10^3/uL (0.1-0.8); Absolute Neutrophil Count 7.66 10^3/uL (1.2-6.7); Basophils % 0.5; Eosinophils % 0.4; HCT 46.1 % (36.0-46.0); HGB 15.2 g/dL (11.2-15.7); Immature Grans % 0.3; Lymphocytes % 22.7; MCH 28.8 pg (27.0-33.0); MCV 87 fL (80-95); MPV 8.7 fL (8.0-11.0); Monocytes % 8.9; Neutrophils % 67.2; Platelet Count 411 10^3/uL (130-400); RBC 5.28 10^6/uL (3.93-5.22); RDW 12.9 % (11.7-14.6); RDW-SD 41.4 fL
[2023-03-28 08:35] LABS: Hemoglobin A1C 5.3 % (<5.7)
[2023-03-28 09:28] LABS: ALT 19 U/L (14-59); AST 13 U/L (15-37); Albumin 3.8 g/dL (3.4-5.0); Alkaline Phosphatase 69 U/L (46-116); Anion Gap 7.9 mmol/L (3-11); BUN 9 mg/dL (7-18); Bilirubin, Total 0.6 mg/dL (0.2-1.0); CO2 27.1 mmol/L (21.0-32.0); CREATININE 0.8 mg/dL (0.55-1.02); Calcium 9.3 mg/dL (8.5-10.1); Calculated LDL 121 mg/dL (<100); Chloride 103 mmol/L (98-107); Cholesterol 191 mg/dL (<200); Estimated GFR 98.48 (mL/min/1.73m2); Folate 16.5 ng/mL (8.6-20.0); Glucose 83 mg/dL (74-106); HDL Cholesterol 48 mg/dL (40-60); Potassium 4.3 mmol/L (3.5-5.1); Sodium 138 mmol/L (136-145); TSH (W/Ref FT4) 1.66 uIU/mL (0.36-3.74); Total Protein 7.5 g/dL (6.4-8.2); Triglyceride 110 mg/dL (<150); Vitamin B12 752 pg/mL (193-986)
[2023-03-28 09:38] LABS: Vitamin D 25 Total 24.6 ng/mL (30-100)
== END 2023-03-28 08:07 | disposition home or self-care (01) ==
LOC: LBO 08:11
PROVIDERS: PCP Nurse Practitioner Adult Health; Visit Provider Nurse Practitioner Adult Health
DX: F43.20 Adjustment disorder, unspecified (principal); G43.109 Migraine with aura, not intractable, without status migrainosus; G89.29 Other chronic pain; M54.6 Pain in thoracic spine; Z51.81 Encounter for therapeutic drug level monitoring
CPT/HCPCS: 36415; 80053; 80061; 82306; 82607; 82746; 83036; 84443; 85025

== ENCOUNTER 2023-04-05 22:04 | Outpatient (CLI) | payer OTHER, SELFPAY ==
[2023-04-05 12:05] LABS: Bilirubin Negative (Negative); Blood Negative (Negative); Clarity Clear (Clear); Glucose Negative (Negative); Ketones Negative (Negative); Leukocyte Esterase Small (Negative); Nitrite Negative (Negative); Urobilinogen 0.2 mg/dL (Up to 0.2); pH 6.5 (5-8)
[2023-04-05 12:12] LABS: Bacteria Moderate HPF (Negative); C & S Indicated? Yes; Casts Negative LPF (Negative); Crystals Negative HPF (Negative); Epithelial Cells Rare HPF (Negative); Mucus Negative (Negative); RBC Negative HPF (0-2)
[2023-04-05 13:28] LABS: Iron 32 ug/dL (50-170); Total Iron Binding Capacity 305 ug/dL (250-450); Transferrin Sat 10 % (15-50)
[2023-04-05 13:38] LABS: Ferritin 78 ng/mL (8-252)
== END 2023-04-05 22:05 | disposition home or self-care (01) ==
LOC: LBO 22:07
PROVIDERS: PCP Nurse Practitioner Adult Health; Visit Provider Surgery
DX: R30.0 Dysuria (principal); L65.9 Nonscarring hair loss, unspecified
CPT/HCPCS: 36415; 87077; 81003; 81015; 82728; 83540; 83550; 87086; 87186

== ENCOUNTER 2023-04-19 01:52 | Outpatient (CLI) | payer OTHER, SELFPAY ==
[2023-04-19 14:38] LABS: Ferritin 75 ng/mL (8-252)
[2023-04-19 15:50] LABS: Iron 55 ug/dL (50-170); Total Iron Binding Capacity 289 ug/dL (250-450); Transferrin Sat 19 % (15-50)
== END 2023-04-19 01:53 | disposition home or self-care (01) ==
LOC: LBO 01:52
PROVIDERS: PCP Nurse Practitioner Adult Health; Visit Provider Surgery
DX: L65.9 Nonscarring hair loss, unspecified (principal)
CPT/HCPCS: 36415; 82728; 83540; 83550

== ENCOUNTER 2023-05-23 11:00 | Outpatient (CLI) | payer OTHER, SELFPAY ==
--- NOTE | 2023-05-23 06:00 | DI.RAD_ITS ---
Exam(s) XR PAIN CLINIC THORACIC SP 2V EXAM: XR PAIN CLINIC THORACIC SP 2V CLINICAL HISTORY: Dx: Thoracic Radiculopathy TECHNIQUE: 2D and realtime digital imaging was performed. CONTRAST MATERIAL: Refer to procedure report. COMPARISON: No exams were available for comparison FINDINGS: Fluoroscopy was provided for Dr. Osborne during the performance of a thoracic epidural steroid injectio n. Please refer to the procedure report for complete details. Ka,r=15.0 mGy IMPRESSION:
[2023-05-23 11:17] VITALS: BP 131/89; PULSE 86; RESP 20; TEMP 36.7; O2SAT 97
[2023-05-23 12:01] VITALS: BP 138/96; PULSE 82; RESP 16; O2SAT 98
[2023-05-23] MEDS: Omnipaque 240 MG/ML 50 ML BTL IJ (12:03)
[2023-05-23] MEDS: Dexamethasone Sod. Phos./Pres-Free 10 MG/ML VIAL IJ (12:04)
--- NOTE | 2023-05-29 10:44 | PDOC.PAIN_ITS ---
Date of service: 05/23/23 Time of Service: 12:00 Pain Managment Procedure Note Procedure Note Procedure Note: Procedure Note Thoracic Interlaminar Epidural Steroid Injection Date of Service: May 23, 2023 Patient:? Don Stout? Provider:? Madeline Osborne DO, MPH Don has been referred to the [facility] for thoracic epidural steroid injection.? Pre-operative diagnosis: Cervical Radiculopathy Post-operative diagnosis: Same Pre-procedure pain: VAS= 8/10 Comments: She has had this procedure multiple times. Her last TESI gave her >4 months of >50% pain improvement. Don was interviewed and the medical record was reviewed.? There were no medical, pharmacologic, radiographic or other structural contraindications to attempting fluoroscopically guided thoracic interlaminar epidural steroid injection.? Risks, potential side effects, indications, and potential benefits of the procedure were reviewed with Don.? Questions and concerns were addressed.? After it was clear that the patient was fully informed about the procedure, the printed consent form was signed by the patient and myself.? Don was placed in the prone position on the fluoroscopy table and automated blood pressure cuff as well as pulse oximeter was applied. A standard time-out procedure was performed. The skin entry point for entering the epidural space by a midline T6-T7 interlaminar approach was identified under fluoroscopy and marked.? The skin entry point was thoroughly cleaned with Chlorhexadine preparation and the skin was draped.? Next a mixture of 2 mls of 1% lidocaine was infiltrated into the area of the planned skin entry point and underlying subcutaneous tissues.? Next an 18 gauge Tuohy needle was placed under fluoroscopic guidance and with loss of resistance technique into the epidural space utilizing multiple AP and 55 degree contralateral fluoroscopic views.? Upon correct needle placement and loss of resistance, there were no paresthesia or return of blood or CSF through the needle. Next 1 mls of preservative-free Omnipaque 240 was injected with clear epidural spread in the A/P and oblique views. Next, a solution of 15 mg of preservative-free Dexamethasone was injected. This was followed with 1ml of preservative-free normal saline. No unusual discomfort was expressed by Eronbossman. The needle was withdrawn without difficulty. (49 mls of Omnipaque and 5 mg of Dexamethasone was wasted) Don was observed and was without hemodynamic, neurologic, or allergic reactions.? Fluoroscopic images were digitally archived. Don's vital signs were stable throughout the procedure and were as recorded in the doc flowsheet by the nursing staff.? If given, dosages of intravenous drugs for anxiolysis and analgesia were documented in MAR. Follow up plans and appointments were discussed with Don.? Post procedure instruction was given as documented in nursing documentation and having met discharge criteria, [facility] ? COMMENTS: No apparent complications. Post-procedure pain: VAS= 5/10. Don to contact [place] [facility] as needed. If at least 50% improvement in pain and/or function for at least 3 months is achieved, this procedure can be repeated. I personally completed the entire procedure. MADELINE OSBORNE DO, MPH ABPMR-subspecialty board certification in Pain Medicine [facility] [facility]
== END 2023-05-23 11:01 | disposition home or self-care (01) ==
PROVIDERS: PCP Nurse Practitioner Adult Health; Visit Provider Preventive Medicine Occupational Medicine
DX: M54.12 Radiculopathy, cervical region (principal)
CPT/HCPCS: 00123; 62321; 72070; Q9967

== ENCOUNTER 2023-12-01 13:17 | Emergency (ER) | payer OTHER, SELFPAY ==
[2023-12-01 13:18] VITALS: BP 145/101; PULSE 107; RESP 12; TEMP 36.4; O2SAT 99
[2023-12-01 13:38] VITALS: BP 145/101; PULSE 107; RESP 12; TEMP 36.4; O2SAT 99
[2023-12-01 13:40] LABS: Bilirubin Negative (Negative); Blood Trace-intact (Negative); Clarity Sl Cloudy (Clear); Glucose Negative (Negative); Ketones Trace mg/dL (Negative); Leukocyte Esterase Moderate (Negative); Nitrite Negative (Negative); Specific Gravity >= 1.030 (1.005-1.025); Urobilinogen 0.2 mg/dL (Up to 0.2)
[2023-12-01 13:48] LABS: Bacteria Few HPF (Negative); C & S Indicated? No/Sq. Contamination; Casts Negative LPF (Negative); Crystals Negative HPF (Negative); Epithelial Cells Moderate HPF (Negative); Mucus Moderate (Negative); RBC 0-2 HPF (0-2); WBC >50 HPF (0-5)
[2023-12-01] MEDS: Ondansetron O.D.T. 4 MG TABEF, 3 TABS/BTL PO (13:55)
[2023-12-01] MEDS: Ondansetron O.D.T. 4 MG TABEF PO (13:55)
[2023-12-01] MEDS: Cephalexin 500 MG CAP, 4 CAPS/BTL PO (13:55)
[2023-12-01 14:00] VITALS: BP 145/101; PULSE 107; RESP 12; TEMP 36.4; O2SAT 99
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
== END 2023-12-01 14:00 | disposition home or self-care (01) ==
PROVIDERS: Emergency Provider Emergency Medicine; PCP Nurse Practitioner Adult Health
DX: N39.0 Urinary tract infection, site not specified (principal)
CPT/HCPCS: 81025; 99283; 81003; 81015; 87086

== ENCOUNTER 2023-12-14 16:09 | Outpatient (REF) | payer OTHER, SELFPAY ==
[2023-12-14 18:19] LABS: Bacteria Many HPF (Negative); C & S Indicated? C&S Done As Ordered; Casts Negative LPF (Negative); Crystals Negative HPF (Negative); Epithelial Cells Few HPF (Negative); Mucus Negative (Negative); RBC 0-2 HPF (0-2); WBC 20-50 HPF (0-5)
== END 2023-12-14 16:10 | disposition home or self-care (01) ==
LOC: LBN 16:09
PROVIDERS: PCP Nurse Practitioner Adult Health; Visit Provider Physician Assistant Medical
DX: N39.0 Urinary tract infection, site not specified (principal)
CPT/HCPCS: 87077; 81015; 87086; 87186

== ENCOUNTER 2024-01-16 07:31 | Outpatient (CLI) | payer OTHER, SELFPAY ==
[2024-01-16] VITALS (8 sets, daily range): BP systolic 135–165; BP diastolic 101–108; PULSE 82–104; RESP 13–20; TEMP 36.7; O2SAT 94–100
--- NOTE | 2024-01-16 08:32 | DI.RAD_ITS ---
Exam(s) XR PAIN CLINIC THORACIC SP 2V EXAM: XR PAIN CLINIC THORACIC SP 2V CLINICAL HISTORY: Cervical Radiculopathy TECHNIQUE: 2D and realtime digital imaging was performed. CONTRAST MATERIAL: Refer to procedure report. COMPARISON: No exams were available for comparison FINDINGS: Fluoroscopy was provided for Dr. Osborne during the performance of a thoracic epidural steroid injectio n. Please refer to the procedure report for complete details. Ka,r=22.6 mGy IMPRESSION: RADIATION DOSE DELIVERED: 0.0 0.0 0
--- NOTE | 2024-01-16 08:33 | PDOC.PAIN ---
Date of service: 01/16/24 Time of Service: 08:33 Pain Managment Procedure Note Procedure Note Procedure Note: Procedure Note Thoracic Interlaminar Epidural Steroid Injection Date of Service: ??January 16, 2024 Patient:? Don Stout? Provider:? Zhang Osborne DO, MPH? Dx: Thoracic Radiculopathy Pre-procedure pain level to the mid-back/chest on VAS: 5/10 ? Ms. Stout has been referred to the [facility] for a thoracic epidural steroid injection.? Ms. Stout was interviewed and the medical record were reviewed.? There were no medical, pharmacologic, radiographic, or other structural contraindications to attempting fluoroscopically guided thoracic interlaminar epidural steroid injection.? Risks, potential side effects, indications, and potential benefits of the procedure were reviewed with Ms. Stout.? Questions and concerns were addressed.? After it was clear that the patient was fully informed about the procedure, the printed consent form was signed by the patient and myself.? The patient was placed in the prone position on the fluoroscopy table and automated blood pressure cuff as well as pulse oximeter was applied.? A standard time-out procedure was performed.? The skin of the neck and upper back was thoroughly cleaned with Chlorhexadine preparation and the skin was draped.? The skin entry point for entering the epidural space by a left paramedian interlaminar approach at the T6-T7 interspace was identified under fluoroscopy and marked.? Next 2 cc of 1% lidocaine was infiltrated into the area of the planned skin entry point and underlying subcutaneous tissues.? Next an 18 gauge 3.5? Tuohy needle was placed under fluoroscopic guidance and with loss of resistance technique into the epidural space utilizing multiple AP and 55 degree contralateral oblique fluoroscopic views.? Upon correct needle placement and loss of resistance, there were no paresthesiae or return of blood or CSF through the needle. Next 1-2cc of preservative-free Omnipaque 240 was injected with clear epidural spread in the A/P and 55 degree contralateral oblique views. Next, 1.5 cc of preservative-free Dexamethasone (10 mg/cc) was injected.? This was followed with 1ml of preservative-free normal saline.? There was no unusual discomfort expressed by the patient.? (48 cc of Omnipaque and 5 mg of Dexamethasone was wasted) The patient?s vital signs were stable throughout the procedure and were as recorded in the flowsheet by the nursing staff. ?Dosages of intravenous drugs for anxiolysis and analgesia were documented in MAR. Follow up plans and appointments were discussed with the patient.? Post procedure instruction was given as documented in nursing documentation and having met discharge criteria.? The patient was discharged from the [facility].? The patient has our contact information and will contact us, contact the PCP, or report to an Emergency Room if there are any problems.? We will contact the patient in 2 weeks to see how they are doing.? If they patient does well with this procedure, but the symptoms return, this procedure can be completed up to 3 times per 12 months. COMMENTS: Post-procedure pain level on VAS was 0/10.? I personally completed the entire procedure. ZHANG OSBORNE DO, MPH ABPMR-subspecialty board certification in Pain Medicine [facility]
[2024-01-16] MEDS: Epidural Tray 1 EACH MC (08:44)
[2024-01-16] MEDS: Dexamethasone Sod. Phos./Pres-Free 10 MG/ML VIAL IJ (08:44)
[2024-01-16] MEDS: Omnipaque 240 MG/ML 50 ML BTL IJ (08:44)
== END 2024-01-16 07:32 | disposition home or self-care (01) ==
LOC: PC 07:31
PROVIDERS: PCP Nurse Practitioner Adult Health; Visit Provider Preventive Medicine Occupational Medicine
DX: M54.14 Radiculopathy, thoracic region (principal)
CPT/HCPCS: 62321; 72070; J1100; Q9967

== ENCOUNTER 2024-03-20 13:57 | Outpatient (REF) | payer OTHER, SELFPAY | END 2024-03-20 13:58 | disposition home or self-care (01) | LOC: LBN 13:57 | PROVIDERS: PCP Nurse Practitioner Adult Health; Visit Provider Family Medicine | DX: N39.0 Urinary tract infection, site not specified (principal) | CPT/HCPCS: 87086 ==

== ENCOUNTER 2024-03-26 16:02 | Outpatient (REF) | payer OTHER, SELFPAY ==
[2024-03-26 16:59] LABS: Bilirubin Negative (Negative); Blood Negative (Negative); Clarity Sl Cloudy (Clear); Glucose Negative (Negative); Ketones Trace mg/dL (Negative); Leukocyte Esterase Trace (Negative); Nitrite Negative (Negative); Specific Gravity >= 1.030 (1.005-1.025); Urobilinogen 0.2 mg/dL (Up to 0.2)
[2024-03-26 17:11] LABS: Bacteria Moderate HPF (Negative); C & S Indicated? No/Sq. Contamination; Casts Negative LPF (Negative); Crystals Negative HPF (Negative); Epithelial Cells Moderate HPF (Negative); Mucus Moderate (Negative); Other Cells Negative (Negative); RBC Negative HPF (0-2)
== END 2024-03-26 16:03 | disposition home or self-care (01) ==
LOC: LBN 16:02
PROVIDERS: PCP Nurse Practitioner Adult Health; Visit Provider Nurse Practitioner Adult Health
DX: R35.0 Frequency of micturition (principal)
CPT/HCPCS: 81003; 81015

== ENCOUNTER 2024-06-04 10:51 | Outpatient (CLI) | payer OTHER, SELFPAY ==
[2024-06-04 11:00] VITALS: BP 152/83; PULSE 90; RESP 20; TEMP 36.6; O2SAT 99
[2024-06-04 11:14] VITALS: PULSE 81; RESP 23; O2SAT 99
[2024-06-04 11:15] VITALS: BP 162/113; PULSE 79; PULSE 82; RESP 19; O2SAT 99
[2024-06-04 11:16] VITALS: BP 158/112; PULSE 80; PULSE 88; RESP 19; O2SAT 99
[2024-06-04 11:20] VITALS: PULSE 90; RESP 16; O2SAT 100
--- NOTE | 2024-06-04 11:30 | DI.RAD_ITS ---
Exam(s) XR PAIN CLINIC THORACIC SP 2V EXAM: XR PAIN CLINIC THORACIC SP 2V CLINICAL HISTORY: Dx: Thoracic Radiculopathy. TECHNIQUE: Fluoroscopy was provided for the referring physician for guidance with performing pain cl inic injection procedure. COMPARISON: No exams were available for comparison FINDINGS: Please see procedure note for details. Fluoro time: 34.5 seconds RADIATION DOSE DELIVERED: Ka,r=8.17 mGy
[2024-06-04 11:31] VITALS: BP 133/91; PULSE 83
[2024-06-04] MEDS: Omnipaque 240 MG/ML 50 ML BTL IJ (11:35)
[2024-06-04] MEDS: Epidural Tray 1 EACH MC (11:35)
[2024-06-04] MEDS: Dexamethasone Sod. Phos./Pres-Free 10 MG/ML VIAL IJ (11:36)
--- NOTE | 2024-06-04 12:28 | PDOC.PAIN_ITS ---
Date of service: 06/04/24 Time of Service: 12:28 Pain Managment Procedure Note Procedure Note Procedure Note: Procedure Note Thoracic Interlaminar Epidural Steroid Injection Date of Service: June 04, 2024 Patient:? Don Stout? Provider:? Zhang Osborne DO, MPH Don has been [facility] to [facility] for thoracic epidural steroid injection.? Pre-operative diagnosis: Thoracic Radiculopathy ICD-10 M54.14 Post-operative diagnosis: Same Pre-procedure pain: VAS= 8/10 Comments: She had >4 months of >50% pain relief with her last thoracic GERMAIN in December 2023. Don was interviewed and the medical record was reviewed.? There were no medical, pharmacologic, radiographic or other structural contraindications to attempting fluoroscopically guided thoracic interlaminar epidural steroid injection.? Risks, potential side effects, indications, and potential benefits of the procedure were reviewed with Don.? Questions and concerns were addressed.? After it was clear that the patient was fully informed about the procedure, the printed consent form was signed by the patient and myself.? Don was placed in the prone position on the fluoroscopy table and automated blood pressure cuff as well as pulse oximeter was applied. A standard time-out procedure was performed. The skin entry point for entering the epidural space by a midline T6-T7 interlaminar approach was identified under fluoroscopy and marked.? The skin entry point was thoroughly cleaned with Chlorhexadine preparation and the skin was draped.? Next a mixture of 2 mls of 1% lidocaine was infiltrated into the area of the planned skin entry point and underlying subcutaneous tissues.? Next an 18 gauge Tuohy needle was placed under fluoroscopic guidance and with loss of resistance technique into the epidural space utilizing multiple AP and 55 degree contralateral fluoroscopic views.? Upo n correct needle placement and loss of resistance, there were no paresthesia or return of blood or CSF through the needle. Next 1 mls of preservative-free Omnipaque 240 was injected with clear epidural spread in the A/P and oblique views. Next, a solution of 15 mg of preservative-free Dexamethasone was injected. This was followed with 1ml of preservative-free normal saline. No unusual discomfort was expressed by Don. The needle was withdrawn without difficulty. (49 mls of Omnipaque and 5 mg of Dexamethasone was wasted) Don was observed and was without hemodynamic, neurologic, or allergic reactions.? Fluoroscopic images were digitally archived. Don's vital signs were stable throughout the procedure and were as recorded in the doc flowsheet by the nursing staff.? If given, dosages of intravenous drugs for anxiolysis and analgesia were documented in MAR. Follow up plans and appointments were discussed with Don.? Post procedure instruction was given as documented in nursing documentation and having met discharge criteria, [facility]. ? COMMENTS: No apparent complications. Post-procedure pain: VAS=1/10. Don to contact [facility] as needed. If at least 50% improvement in pain and/or function for at least 3 months is achieved, this procedure can be repeated. I personally completed the entire procedure. ZHANG OSBORNE DO, MPH ABPMR-subspecialty board certification in Pain Medicine [facility]
== END 2024-06-04 10:52 | disposition home or self-care (01) ==
LOC: PC 10:52
PROVIDERS: PCP Nurse Practitioner Adult Health; Visit Provider Preventive Medicine Occupational Medicine
DX: M54.14 Radiculopathy, thoracic region (principal)
CPT/HCPCS: 62321; 72070; J1100; Q9967

== ENCOUNTER 2024-08-25 14:59 | Outpatient (REF) | payer OTHER, SELFPAY ==
[2024-08-25 18:50] LABS: Bilirubin Negative (Negative); Blood Negative (Negative); Clarity Sl Cloudy (Clear); Glucose Negative (Negative); Ketones Negative (Negative); Leukocyte Esterase Negative (Negative); Nitrite Negative (Negative); Urobilinogen 0.2 mg/dL (Up to 0.2); pH 7.5 (5-8)
== END 2024-08-25 15:00 | disposition home or self-care (01) ==
LOC: LBN 14:59
PROVIDERS: PCP Nurse Practitioner Adult Health; Visit Provider Nurse Practitioner Gerontology
DX: N39.0 Urinary tract infection, site not specified (principal)
CPT/HCPCS: 87077; 81003; 87086; 87186

== ENCOUNTER 2024-09-07 13:54 | Outpatient (CLI) | payer OTHER, SELFPAY ==
--- NOTE | 2024-09-07 13:45 | RT.EKG_ITS ---
APPROVED REPORT Exam: Resting ECG Reason for Exam: hx palpitations Patient Location: O HR:82 bpm ECG Measurements Heart Rate 82 AXIS NE 134 P 40 QRSd 103 QRS -2 QT 374 T 38 QTc 437 Conclusion Sinus rhythm...normal P axis, V-rate 50- 99 Probable left atrial enlargement...P >50mS, <-0.10mV V1 Low voltage, precordial leads...precordial leads <1.0mV RSR' in V1 or V2
== END 2024-09-07 13:55 | disposition home or self-care (01) ==
LOC: DI.CARD 13:54
PROVIDERS: PCP Nurse Practitioner Adult Health; Visit Provider Registered Nurse
DX: R00.2 Palpitations (principal)
CPT/HCPCS: 93010

== ENCOUNTER 2024-10-16 10:46 | Outpatient (CLI) | payer OTHER, SELFPAY ==
--- NOTE | 2024-10-16 10:30 | DI.RAD_ITS ---
Exam(s) XR CHEST 2V PA LATERAL EXAM: XR CHEST 2V PA LATERAL CLINICAL HISTORY: Cough, R05.9, Evaluate for pneumonia. TECHNIQUE: 2D digital imaging was performed. COMPARISON: No exams were available for comparison FINDINGS: 2 views: Heart size is normal. The mediastinum is not widened. Lungs are clear. No infiltrates nor pleural effusions. IMPRESSION: No acute pulmonary findings. DATA REPOSITORY: RADIATION DOSE DELIVERED:
== END 2024-10-16 11:06 ==
LOC: DI 10:46
PROVIDERS: PCP Nurse Practitioner Adult Health; Visit Provider Family Medicine
DX: R05.9 Cough, unspecified (principal)
CPT/HCPCS: 71046

== ENCOUNTER 2024-12-17 14:39 | Outpatient (CLI) | payer OTHER, SELFPAY ==
[2024-12-17 14:59] VITALS: BP 123/79; PULSE 88; RESP 18; TEMP 36.5; O2SAT 98
--- NOTE | 2024-12-17 15:15 | DI.RAD_ITS ---
Exam(s) XR PAIN CLINIC THORACIC SP 2V EXAM: XR PAIN CLINIC THORACIC SP 2V CLINICAL HISTORY: Dx: Thoracic Radiculopathy. TECHNIQUE: Fluoroscopy was provided for the referring physician for guidance with performing pain clinic injection procedure. COMPARISON: No exams were available for comparison FINDINGS: Please see procedure note for details. Fluoro time: 54.5 seconds RADIATION DOSE DELIVERED: Ka,r=13.7 mGy
[2024-12-17 15:20] VITALS: BP 153/106; PULSE 83; PULSE 86; RESP 18; O2SAT 98
[2024-12-17 15:21] VITALS: PULSE 83; RESP 14; O2SAT 98
[2024-12-17 15:30] VITALS: PULSE 87; PULSE 88; RESP 21; O2SAT 98
[2024-12-17 15:31] VITALS: BP 154/112; PULSE 79; PULSE 97; RESP 25; O2SAT 99
[2024-12-17 15:40] VITALS: BP 154/117; PULSE 99; O2SAT 100
[2024-12-17] MEDS: Omnipaque 240 MG/ML 50 ML BTL IJ (15:47)
[2024-12-17] MEDS: Epidural Tray 1 EACH MC (15:47)
[2024-12-17] MEDS: Dexamethasone Sod. Phos./Pres-Free 10 MG/ML VIAL IJ (15:47)
--- NOTE | 2024-12-21 07:53 | PDOC.PAIN_ITS ---
Date of service: 12/17/24 Time of Service: 15:30 Pain Managment Procedure Note Procedure Note Procedure Note: Procedure Note Thoracic Interlaminar Epidural Steroid Injection Date of Service: December 17, 2024 Patient:Don Craft? Provider:? Zhang Osborne DO, MPH Don has been referred to the [facility] for thoracic epidural steroid injection.? Pre-operative diagnosis: Thoracic Radiculopathy ICD-10 M54.14 Post-operative diagnosis: Same Pre-procedure pain: VAS= 7/10 Comments: She has had this procedure of a number of times. Her last procedure was 06/04/2024 with over 3 months of over 50% pain relief. Don was interviewed and the medical record was reviewed.? There were no medical, pharmacologic, radiographic or other structural contraindications to attempting fluoroscopically guided cervical interlaminar epidural steroid injection.? Risks, potential side effects, indications, and potential benefits of the procedure were reviewed with Don.? Questions and concerns were addressed.? After it was clear that the patient was fully informed about the procedure, the printed consent form was signed by the patient and myself.? Don was placed in the prone position on the fluoroscopy table and automated blood pressure cuff as well as pulse oximeter was applied. A standard time-out procedure was performed. The skin entry point for entering the epidural space by a midline T6-T7 interlaminar approach was identified under fluoroscopy and marked.? The skin entry point was thoroughly cleaned with Chlorhexadine preparation and the skin was draped.? Next a mixture of 2 mls of 1% lidocaine was infiltrated into the area of the planned skin entry point and underlying subcutaneous tissues.? Next an 18 gauge Tuohy needle was placed under fluoroscopic guidance and with loss of resistance technique into the epidural space utilizing multiple AP and 55 degree contralateral fluoroscopic views.? Upon correct needle placement and loss of resistance, there were no paresthesia or return of blood or CSF through the needle. Next 1 mls of preservative-free Omnipaque 240 was injected with clear epidural spread in the A/P and oblique views. Next, a solution of 15 mg of preservative-free Dexamethasone was injected. This was followed with 1ml of preservative-free normal saline. No unusual discomfort was expressed by Don. The needle was withdrawn without difficulty. (49 mls of Omnipaque and 5 mg of Dexamethasone was wasted) Don was observed and was without hemodynamic, neurologic, or allergic reactions.? Fluoroscopic images were digitally archived. Don's vital signs were stable throughout the procedure and were as recorded in the doc flowsheet by the nursing staff.? If given, dosages of intravenous drugs for anxiolysis and analgesia were documented in MAR. Follow up plans and appointments were discussed with Don.? Post procedure instruction was given as documented in nursing documentation and having met discharge criteria, Don was [facility] from the [facility]. ? COMMENTS: No apparent complications. Post-procedure pain: VAS= 3/10. Don to contact [facility] as needed. If at least 50% improvement in pain and/or function for at least 3 months is achieved, this procedure can be repeated. I personally completed the entire procedure. ZHANG OSBORNE DO, MPH ABPMR-subspecialty board certification in Pain Medicine [facility] Coding Conscious Sedation used for procedure: No CPT Codes: Inj Spine C/T w/Imaging - [id number] ([id number] ~G) Additional Codes: Date of Service (19513) Date of service: 12/17/24 Diagnoses: Thoracic radiculopathy
== END 2024-12-17 14:40 | disposition home or self-care (01) ==
LOC: PC 14:39
PROVIDERS: PCP Nurse Practitioner Adult Health; Visit Provider Preventive Medicine Occupational Medicine
DX: M54.14 Radiculopathy, thoracic region (principal)
CPT/HCPCS: 62321; 72070; J1100; Q9967

== ENCOUNTER 2025-01-04 02:59 | Outpatient (CLI) | payer OTHER, SELFPAY ==
[2025-01-04 07:29] LABS: HCT 42.6 % (36.0-46.0); HGB 14.5 g/dL (11.2-15.7); MCH 30.0 pg (27.0-33.0); MCHC 34.0 % (32.0-36.0); MCV 88 fL (80-95); MPV 8.8 fL (8.0-11.0); Platelet Count 418 10^3/uL (130-400); RBC 4.84 10^6/uL (3.93-5.22); RDW 12.9 % (11.7-14.6); RDW-SD 41.2 fL; WBC 13.72 10^3/uL (4.4-10.8)
[2025-01-04 07:57] LABS: Hemoglobin A1C 5.1 % (<5.7)
[2025-01-04 08:20] LABS: ALT 23 U/L (14-59); AST 14 U/L (15-37); Albumin 3.6 g/dL (3.4-5.0); Alkaline Phosphatase 64 U/L (46-116); Anion Gap 5.6 mmol/L (3-11); BUN 13 mg/dL (7-18); Bilirubin, Total 0.5 mg/dL (0.2-1.0); CO2 28.4 mmol/L (21.0-32.0); Calcium 9.0 mg/dL (8.5-10.1); Calculated LDL 149 mg/dL (<100); Chloride 103 mmol/L (98-107); Cholesterol 231 mg/dL (<200); Estimated GFR 114.16 (mL/min/1.73m2); Glucose 93 mg/dL (74-106); HDL Cholesterol 47 mg/dL (>or=50); Potassium 4.2 mmol/L (3.5-5.1); Sodium 137 mmol/L (136-145); Total Protein 7.4 g/dL (6.4-8.2); Triglyceride 175 mg/dL (<150); Vitamin B12 1263 pg/mL (193-986); Vitamin D 25 Total 37 ng/mL (30-100)
[2025-01-04 08:22] LABS: Folate > 20.0 ng/mL (8.6-20.0)
== END 2025-01-04 03:00 | disposition home or self-care (01) ==
LOC: LBO 02:59
PROVIDERS: PCP Nurse Practitioner Adult Health; Referring Provider Nurse Practitioner Adult Health; Visit Provider Nurse Practitioner Adult Health
DX: E78.2 Mixed hyperlipidemia (principal); F41.9 Anxiety disorder, unspecified; F32.A Depression, unspecified; R73.01 Impaired fasting glucose; E66.01 Morbid (severe) obesity due to excess calories; Z68.42 Body mass index [BMI] 45.0-49.9, adult; Z51.81 Encounter for therapeutic drug level monitoring; E55.9 Vitamin D deficiency, unspecified
CPT/HCPCS: 36415; 80053; 80061; 82306; 85027; 82607; 82746; 83036

== ENCOUNTER 2025-01-22 01:34 | Outpatient (CLI) | payer OTHER, SELFPAY ==
--- NOTE | 2025-01-22 08:15 | DI.MRI_ITS ---
Exam(s) MR THORACIC SPINE WO EXAM: MR THORACIC SPINE WO CLINICAL HISTORY: Continued mid-back pain, CHRONIC PAIN, M54.6, G89.29. TECHNIQUE: Multiplanar multisequence MRI of the Thoracic spine was performed. COMPARISON: MR MR THORACIC SPINE WO from 09/01/2020 MR MR THORACIC SPINE WO from 01/17/2022 CR XR CHEST 2V PA LATERAL from 10/16/2024 FINDINGS: Bones: The vertebral body heights are well maintained. Alignment is satisfactory. The marrow signal characteristics are unremarkable. Cord: The thoracic cord is normal size and signal intensity. No intrinsic cord lesion is present. There is stable mild dilatation of the central canal, proximally 1 millimeter diameter, consistent with hydromyelia. Soft tissues: Normal. T1-2: No disc herniation or bulge is identified. T2-3: No disc herniation or bulge is identified. T3-4: No disc herniation or bulge is identified. T4-5: No disc herniation or bulge is identified. T5-6: No disc herniation or bulge is identified. T6-7: Are endplate osteophytes projecting posteriorly into the canal, eccentric toward the right. This appears slightly more prominent when compared the previous exams. T7-8: No disc herniation or disc bulge. There are moderate endplate osteophytes projecting anteriorly and to the right. T8-9: No disc herniation or bulge is identified. There are small endplate osteophytes projecting anteriorly and toward the right. T9-10: No disc herniation or bulge is identified. There are small endplate osteophytes projecting anteriorly and toward the right. T10-11:No disc herniation or bulge is identified. There are small endplate osteophytes projecting anteriorly and toward the right. T11-12: No disc herniation or bulge is identified. There moderate endplate osteophytes projecting anteriorly and to the right. T12-L1: No disc herniations or bulges are present. There are large endplate osteophytes projecting anteriorly the right. IMPRESSION: Stable appearance of mild hydromyelia Central and right-sided osteophytes project into the central canal at T6-7, somewhat more prominent when compared with the previous exams. No significant central canal stenosis. DATA REPOSITORY:
== END 2025-01-22 01:54 ==
LOC: DI 01:35
PROVIDERS: PCP Nurse Practitioner Adult Health; Visit Provider Preventive Medicine Occupational Medicine
DX: M54.6 Pain in thoracic spine (principal); M25.78 Osteophyte, vertebrae
CPT/HCPCS: 72146

== ENCOUNTER 2025-01-30 12:43 | Outpatient (REF) | payer OTHER, SELFPAY ==
[2025-01-30 16:58] LABS: Glucose Negative (Negative)
[2025-01-30 17:08] LABS: C & S Indicated? No; RBC 0-2 HPF (0-2)
== END 2025-01-30 12:44 | disposition home or self-care (01) ==
LOC: LBN 12:43
PROVIDERS: PCP Nurse Practitioner Adult Health; Visit Provider Nurse Practitioner Acute Care
DX: R30.0 Dysuria (principal)
CPT/HCPCS: 81003; 81015

== ENCOUNTER 2025-02-26 04:32 | Outpatient (CLI) | payer OTHER, SELFPAY ==
[2025-02-26 05:25] LABS: Calculated LDL 136 mg/dL (<100); Cholesterol 212 mg/dL (<200); HDL Cholesterol 44 mg/dL (>or=50); Triglyceride 164 mg/dL (<150)
[2025-02-27 01:28] LABS: HBs Antibody, Quant 110.0 mIU/mL (See Note); Hepatitis B Surface Ab Positive (See Note)
== END 2025-02-26 04:33 | disposition home or self-care (01) ==
LOC: LBN 04:34
PROVIDERS: PCP Nurse Practitioner Adult Health; Visit Provider Nurse Practitioner Adult Health
DX: Z13.6 Encounter for screening for cardiovascular disorders (principal); Z01.84 Encounter for antibody response examination
CPT/HCPCS: 80061; 86706; 86765